=== PATIENT | male | born 1960 | race Caucasian/White ===

== ENCOUNTER 2016-07-15 11:43 | Observation (INO) ==
[2016-07-15 12:10] LABS: Basophils # 0.1 K/mcL (0.0-0.2); Basophils % 0.5 %; Eosinophils # 0.1 K/mcL (0.0-0.6); Eosinophils % 0.9 %; Hematocrit 44.3 % (37.5-50.1); Hemoglobin 15.5 g/dL (12.9-16.9); Immature Granulocytes % 0.4 % (0-4); Lymphocytes # 0.7 K/mcL (0.6-4.6); Lymphocytes % 7.4 %; Mean Corpuscular Hemoglobin 32.2 pg (28.0-33.3); Mean Corpuscular Volume 92.1 fL (83.0-100.0); Mean Platelet Volume 8.9 fL (9.4-12.4); Monocytes # 0.8 K/mcL (0.0-1.3); Monocytes % 8.3 %; Neutrophils # 8.2 K/mcL (1.6-8.9); Platelet Count 214 K/mcL (140-400); Red Blood Count 4.81 M/mcL (4.19-5.50); Red Cell Distribution Width 12.7 % (11.5-14.5); Segmented Neutrophils % 82.5 %
[2016-07-15 12:16] LABS: Prothrombin Time 10.5 Seconds (9.4-12.1)
[2016-07-15 12:18] LABS: Activated Partial Thrombo Time 26.1 Seconds (26.0-36.0)
[2016-07-15 12:22] LABS: BUN/Creatinine Ratio 16 (6-26); Blood Urea Nitrogen 15 mg/dL (8-26); Calcium 10.2 mg/dL (8.6-10.8); Carbon Dioxide 24 mEq/L (19-29); Chloride 101 mEq/L (98-109); Glucose 122 mg/dL (70-99); Osmolality,Calculated 278 (280-300); Potassium 4.6 mEq/L (3.5-4.5); Sodium 133 mEq/L (136-145); eGFR For African Americans > 60 (> 60); eGFR For Non-African Americans > 60 (> 60)
[2016-07-15] MEDS ORDERED: Aspirin 81 MG TAB.CHEW PO STA (12:38)
[2016-07-15] MEDS ORDERED: Nitroglycerin 0.4 MG TAB.SUBL SL PRN ×2 (12:38→17:25)
--- NOTE | 2016-07-15 12:39 | Emergency Department Note ---
Disposition Clinical Impression: Elevated troponin Chest pain Qualifiers: Chest pain type: unspecified Qualified Code(s): R07.9 - Chest pain, unspecified Disposition: Admitted As Inpatient Condition: Good Referrals: Yaquelin Valenzuela DO [Primary Care Provider] - Forms: ED Satisfaction Letter Chest Pain HPI - General Chief Complaint: ED Chest Pain Stated Complaint: chest pain Time Seen by Provider: 07/15/16 11:58 Source: patient Limitations: no limitations Vital Signs Reviewed: Yes Nursing Notes Reviewed: Yes - History of Present Illness HPI Narrative: 55-year-old male history of CAD, status post CABG in 2014 who presents to the ER with a chief complaint of chest pain. Patient reports that he woke up this morning with centralized chest pain with radiation into his left upper shoulder. Patient reports it feels like there is a heaviness on his chest. It is been rather constant since it started this morning. Patient reports shortness of breath as well. He denies any diaphoresis, nausea, vomiting. No history of PE. Patient is currently on Plavix. States he follows with cardiology here. No other complaints. Pt complaint: chest pain Onset (ago): hour(s) Time: 08:00 Duration: constant Onset: during rest Pain Location: substernal Severity: moderate Severity scale (1-10): 6 Quality: heaviness Pain Radiation: LUE Improves with: nothing Worsens with: nothing Associated symptoms: Reports: dyspnea. Denies: nausea, vomiting Treatments prior to arrival chest pain: none - Related Data On Oral Contraceptives: No Home Medications Medication Instructions Recorded Confirmed Clopidogrel [Plavix] 75 mg PO DAILY 03/31/15 07/15/16 Albuterol Sulfate [Albuterol 2 puff IH QID PRN 12/10/15 07/15/16 Inhaler] Aspirin Enteric Coated [Aspirin EC] 81 mg PO DAILY 12/10/15 07/15/16 Lisinopril [Zestril] 20 mg PO DAILY 12/10/15 07/15/16 Nitroglycerin [Nitrostat] 0.4 mg SL Q5M PRN 12/10/15 07/15/16 Carvedilol 12.5 mg PO BID 01/09/16 07/15/16 Ibuprofen [Motrin] 800 mg PO Q8HR PRN 01/09/16 07/15/16 Multivit-Min/FA/Lycopen/Lutein 1 tab PO DAILY 01/09/16 07/15/16 [Centrum Silver Tablet] Fluticasone Propionate Nasal 1 spray NS DAILY 07/15/16 07/15/16 [Flonase] Previous Rx's Medication Instructions Recorded OxyCODONE Immed Rel [Roxicodone 5 1 - 2 tab PO Q4HR PRN #40 tablet 12/11/15 MG] Gabapentin [Neurontin] 600 mg PO TID #180 capsule 01/11/16 Rosuvastatin [Crestor] 20 mg PO HS #30 tablet 01/11/16 Allergies Allergy/AdvReac Type Severity Reaction Status Date / Time acetaminophen [From Vicodin] AdvReac Vomiting Verified 12/10/15 07:33 hydrocodone [From Vicodin] AdvReac Vomiting Verified 12/10/15 07:33 All systems ED: reviewed and negative except as stated. Constitutional: Denies: fever Cardiovascular: Reports: chest pain. Denies: palpitations Respiratory: Reports: dyspnea. Denies: cough, wheezes Gastrointestinal: Denies: abdominal pain, nausea, vomiting Musculoskeletal: Denies: back pain, neck pain Chest Pain PMH - Past Medical History Medical history: Reports: hyperlipidemia, hypertension, myocardial infarction, other Surgical history: Reports: coronary bypass (CABG), other (Recent left iliac stent status post thrombectomy 2 weeks ago) Psychiatric history: Reports: no psych history - Social History Smoking Status: Current every day smoker Alcohol use: Reports: none Drug use: Reports: none Physical Exam - General Limitations: no limitations General appearance: alert, in no apparent distress - Head Head exam: atraumatic, normocephalic, normal inspection - Eye Eye exam: Present: normal appearance, EOMI - ENT ENT exam: normal exam - Neck Neck exam: Present: normal inspection - Chest Chest inspection: Present: normal inspection, symmetric chest wall rise - Respiratory Respiratory exam: Present: normal lung sounds bilaterally - Cardiovascular Cardiovascular exam: Present: regular rate, normal rhythm, normal heart sounds - Abdominal Exam Abdominal exam: Present: soft, Non-Tender. Absent: tenderness - Extremities Exam Extremities exam: Present: normal inspection, full ROM - Expanded Upper Extremity Exam Shoulder exam: Present: normal inspection, full ROM Arm exam: Present: normal inspection, full ROM Elbow exam: Present: normal inspection, full ROM Forearm/Wrist exam: Present: normal inspection, full ROM Hand exam: Present: normal inspection, full ROM - Expanded Lower Extremity Exam Hip/Pelvis exam: Present: normal inspection, full ROM Upper leg exam: Present: normal inspection, full ROM Knee exam: Present: normal inspection, full ROM Lower leg exam: Present: normal inspection, full ROM Ankle exam: Present: normal inspection, full ROM Foot/toe exam: Present: normal inspection, full ROM - Neurological Exam Neurological exam: Present: alert - Psychiatric Psychiatric exam: Present: normal affect, normal mood - Skin Skin exam: Present: warm, dry, intact, normal color Course Course Narrative: EKG demonstrates normal sinus rhythm with a rate of 86 bpm. Normal axis. NH interval 152 QRS duration [address] QTC [address] elevations in the precordial leads V1 through V3 that are unchanged from the patient's previous EKG. There are T-wave inversions in the lateral leads V4 and V5 with flattening in V6 that are also unchanged from previous EKG. No other ST elevations or depressions. No significant changes from previous EKG dated 01/09/16. Vital Signs Temperature 98.4 F 07/15/16 11:48 Pulse Rate 88 07/15/16 11:48 Respiratory Rate 16 07/15/16 11:48 Blood Pressure 203/125 07/15/16 11:48 O2 Sat by Pulse Oximetry 94 L 07/15/16 11:48 Temperature 98.4 F 07/15/16 11:48 Pulse Rate 73 07/15/16 15:00 Respiratory Rate 16 07/15/16 15:00 Blood Pressure 123/78 07/15/16 15:00 O2 Sat by Pulse Oximetry 96 07/15/16 15:00 Oxygen Delivery Oxygen Delivery Nasal Cannula Chest Pain - [facility] Narrative Medical decision making narrative: 55-year-old male presents to the ER due to chest pain or shortness of breath. Known history of CAD and CABG. EKG is unchanged from previous. Chest x-ray is unremarkable. Troponin did come back at 0.04. Patient given aspirin and one sublingual nitroglycerin which alleviated his pain. Placed on nitro paste. Admitted to the hospitalist service. - Lab Data Lab results reviewed: Yes I reviewed the patient's lab results. Result diagrams: 07/15/16 12:00 07/15/16 12:00 Lab Results 07/15/16 07/15/16 07/15/16 Range/Units 12:00 12:00 12:00 WBC 10.0 (4.3-11.1) K/mcL RBC 4.81 (4.19-5.50) M/mcL Hgb 15.5 (12.9-16.9) g/dL Hct 44.3 (37.5-50.1) % MCV 92.1 (83.0-100.0) fL MCH 32.2 (28.0-33.3) pg MCHC 35.0 (31.6-35.5) g/dL RDW 12.7 (11.5-14.5) % Plt Count 214 (140-400) K/mcL MPV 8.9 L (9.4-12.4) fL Immature Gran % 0.4 (0-4) % Seg Neutrophils % 82.5 % Lymphocytes % 7.4 % Monocytes % 8.3 % Eosinophils % 0.9 % Basophils % 0.5 % Neutrophils # 8.2 (1.6-8.9) K/mcL Lymphocytes # 0.7 (0.6-4.6) K/mcL Monocytes # 0.8 (0.0-1.3) K/mcL Eosinophils # 0.1 (0.0-0.6) K/mcL Basophils # 0.1 (0.0-0.2) K/mcL PT 10.5 (9.4-12.1) Seconds INR 1.0 APTT 26.1 (26.0-36.0) Seconds Sodium (136-145) mEq/L Potassium (3.5-4.5) mEq/L Chloride (98-109) mEq/L Carbon Dioxide (19-29) mEq/L BUN (8-26) mg/dL Creatinine (0.72-1.25) mg/dL Est GFR ( Amer) (> 60) Est GFR (Non-Af Amer) (> 60) BUN/Creatinine Ratio (6-26) Glucose (70-99) mg/dL Calculated Osmolality (280-300) Calcium (8.6-10.8) mg/dL Troponin I (0-0.03) ng/mL B-Natriuretic Peptide 449 H (0-100) pg/mL TSH (0.350-4.840) mcIU/mL 07/15/16 07/15/16 Range/Units 12:00 12:00 WBC (4.3-11.1) K/mcL RBC (4.19-5.50) M/mcL Hgb (12.9-16.9) g/dL Hct (37.5-50.1) % MCV (83.0-100.0) fL MCH (28.0-33.3) pg MCHC (31.6-35.5) g/dL RDW (11.5-14.5) % Plt Count (140-400) K/mcL MPV (9.4-12.4) fL Immature Gran % (0-4) % Seg Neutrophils % % Lymphocytes % % Monocytes % % Eosinophils % % Basophils % % Neutrophils # (1.6-8.9) K/mcL Lymphocytes # (0.6-4.6) K/mcL Monocytes # (0.0-1.3) K/mcL Eosinophils # (0.0-0.6) K/mcL Basophils # (0.0-0.2) K/mcL PT (9.4-12.1) Seconds INR APTT (26.0-36.0) Seconds Sodium 133 L (136-145) mEq/L Potassium 4.6 H (3.5-4.5) mEq/L Chloride 101 (98-109) mEq/L Carbon Dioxide 24 (19-29) mEq/L BUN 15 (8-26) mg/dL Creatinine 0.95 (0.72-1.25) mg/dL Est GFR ( Amer) > 60 (> 60) Est GFR (Non-Af Amer) > 60 (> 60) BUN/Creatinine Ratio 16 (6-26) Glucose 122 H (70-99) mg/dL Calculated Osmolality 278 L (280-300) Calcium 10.2 (8.6-10.8) mg/dL Troponin I 0.04 H* (0-0.03) ng/mL B-Natriuretic Peptide (0-100) pg/mL TSH 1.572 (0.350-4.840) mcIU/mL - Radiology Data Radiology results reviewed: Yes I reviewed the patient's radiology results. Chest X-Ray 07/15/16 11:58 IMPRESSION: No acute cardiopulmonary process. D/ / 07/15/2016 12:47:29 Ramon Townsend MD / [facility] Interpreting Provider: Ramon Townsend MD - EKG Data EKG attestation: Yes I reviewed and interpreted this EKG. EKG results narrative: EKG demonstrates sinus rhythm with a rate of 86 bpm. Normal axis. NH interval 152 QRS duration 105 QTC [address] elevations in the precordial leads V1 through V3 unchanged from previous. T wave inversions in V4, V5 and lead 1 and unchanged from previous. T wave flattening in lead V6. No other ST elevations or depressions. No acute ischemic findings. No significant changes from previous EKG dated 01/09/16. Heart Score - Score History: Moderately Suspicious EKG: Non Specific repolarisation Disturbance Age: 45-65 Risk Factors: Equal/Greater than 3 risk factor or history of atherosclerotic disease Troponin: 1-3x normal limit HEART Score Total: 6 S.B.A.R. - S.B.A.R. Situation: Demographics, MOA Background: Presenting Complaint, Relevant PMH, Meds, & Allergies Assessment: Vital Signs, Course and respsone to treatment, Exam Concerns, Patient/Family Expectation, Outstanding Labs Recommendation: Barrier(s) to disposition, Recommendation based on pending studies, treatments, or consults S.B.A.R. Report Given to: Saira Van SRoroBRoroAJessica Repor Time: 14:12 Attestation Statement - Attestation Attestation: I personally interviewed and examined this patient and my medical decision- making was reviewed with the ED Resident Physician, Dr. Mabry. I agree with the documented findings, disposition and treatment plan as described in the documentation. Patient's 55-year-old white male with history of known coronary artery disease status post left heart catheter followed by CABG in the past. Patient's here with left-sided chest pain. Pain was relieved with aspirin and 1 nitroglycerin here in the ED. Patient has remained pain-free with stable vital since that time. EKG shows lateral ischemia, but unchanged from prior EKG's. Initial trop is positive. Will admit pt for NSTEMI, is hemodynamically stable and pain free at time of admission.
[2016-07-15] MEDS ORDERED: Nitroglycerin 1 INCH/GM PACKET TP ONE (13:20)
[2016-07-15 14:05] LABS: Thyroid Stimulating Hormone 1.572 mcIU/mL (0.350-4.840)
[2016-07-15] MEDS ORDERED: Naloxone 0.4 MG/ML INJ IVP PRN (17:22)
[2016-07-15] MEDS ORDERED: Ibuprofen 800 MG TABLET PO PRN (17:25)
[2016-07-15] MEDS ORDERED: *HR* OxyCODONE Immed Rel 5 MG TABLET PO PRN (17:25)
--- NOTE | 2016-07-15 18:35 | Internal Med History&Physical ---
<Yulisa Barroso - Last Filed: 07/15/16 20:07> Date of Encounter: 07/15/16 Time of Encounter: 18:29 Assessment and Plan (1) Chest pain Current visit: Yes Status: Acute 1 patient was awakened with sternal chest pressure as well as shortness of breath. He does have a past cardiac history with a 2014 he had a cardiac stress 01/07 which was negative for ischemia echo 01/07 demonstrated EF of 3035% with severe left ventricular systolic dysfunction and moderate diastolic dysfunction. Chest pressure was relieved with nitroglycerin. Troponins were 0.04 we will continue to cycle cardiac troponins 2. cardiac monitoring-EKG 3 continue with aspirin and stati DELLA 4 nitroglycerin as needed for chest pain 5 surgeon titrated to maintain SPO2 92% 6 patient nothing by mouth after midnight 7 consult cardiology 8 encourage patient to stop smoking [address] on cardiac gtt Qualifiers: Chest pain type: unspecified Qualified Code(s): R07.9 - Chest pain, unspecified (2) Unspecified essential hypertension Current visit: No Status: Chronic 1 patient has history of hypertension upon presentation patient's blood pressure was 20 3/125. Presently 120/78. We will continue with lisinopril goal is to maintain systolic less than 140 (3) CAD (coronary artery disease) Current visit: Yes Status: Chronic 1 patient has history of coronary disease with stents and CABG. We will continue with aspirin and statin DELLA 2 we will obtain lipid profile in a.m. 3 cardiac diet Qualifiers: Coronary Disease-Associated Artery/Lesion type: bypass graft, autologous vein Associated angina: with unstable angina Qualified Code(s): I25.710 - Atherosclerosis of autologous vein coronary artery bypass graft(s) with unstable angina pectoris (4) Tobacco abuse Current visit: Yes Status: Chronic 1 patient smoking one pack to pack and a half daily encouraged patient to stop smoking nicotine patch Internal Medicine - H&P: HPI Chief complaint: cp Admitted From: Emergency Dept Plans for Post Hospital Care: Home History of present illness: Mr. Santoro is a 55 year old male past history of CAD status post CABG 2015 stent placements hyperlipidemia hypertension iliac stent 2 weeks ago thrombectomy tobacco abuse. According to the patient he woke with 3 AM this morning with midsternal chest pain described as heaviness radiating to his left upper shoulder. Patient states the pressure may difficult for him to breathe as well as experiencing some nausea and lightheadedness. The heaviness continued all morning making him short of breath there were no relieving factors aggravated with exertion. He came to the ER for further workup and evaluation. Upon presentation patient is experiencing 6 out 10 chest pressure he was given aspirin and one single nitroglycerin which did relieve his pain. He was placed on Nitropaste. Chest x-ray was unremarkable troponin was 0.04 EKG was sinus rhythm with normal axis and is admitted for further workup and evaluation. Presently patient denies any chest pain or shortness of breath he does appear tired he states he is very fatigued. Lung sounds are clear heart sounds with S1 -S2 regular rate no rubs murmurs or gallops noted the present time he is hemodynamically stable. He is case with who agrees with plan Past Med Surg Social Fam HX - Past Medical History Medical history: hyperlipidemia, hypertension, myocardial infarction, other Psychiatric history: no psych history - Past Surgical History Surgical History: angioplasty/stent, coronary bypass (CABG), LE stent(s), other - Social History Smoking Status: Current every day smoker Packs per day: 1.5 Smokeless Tobacco Status: No Alcohol use: none Drug use: none - Family History Brother Living Status: Still Living Hx Family Cardiac Disorders: Yes Hx Family Respiratory Disorders: Yes Internal Medicine - H&P: Meds Clopidogrel [Plavix] 75 mg PO DAILY 03/31/15 [History] Albuterol Sulfate [Albuterol Inhaler] 2 puff IH QID PRN 12/10/15 [History] Aspirin Enteric Coated [Aspirin EC] 81 mg PO DAILY 12/10/15 [History] Lisinopril [Zestril] 20 mg PO DAILY 12/10/15 [History] Nitroglycerin [Nitrostat] 0.4 mg SL Q5M PRN 12/10/15 [History] OxyCODONE Immed Rel [Roxicodone 5 MG] 1 - 2 tab PO Q4HR PRN #40 tablet 12/11/15 [Rx] Carvedilol 12.5 mg PO BID 01/09/16 [History] Ibuprofen [Motrin] 800 mg PO Q8HR PRN 01/09/16 [History] Multivit-Min/FA/Lycopen/Lutein [Centrum Silver Tablet] 1 tab PO DAILY 01/09/16 [ History] Gabapentin [Neurontin] 600 mg PO TID #180 capsule 01/11/16 [Rx] Rosuvastatin [Crestor] 20 mg PO HS #30 tablet 01/11/16 [Rx] Fluticasone Propionate Nasal [Flonase] 1 spray NS DAILY 07/15/16 [History] Allergies acetaminophen [From Vicodin] Adverse Reaction (Verified 12/10/15 07:33) Vomiting PATIENT STATES CAN TAKE TYLENOL NOT VICODIN hydrocodone [From Vicodin] Adverse Reaction (Verified 12/10/15 07:33) Vomiting All Systems PM: A 10-system review of systems was performed and is negative for pertinent findings except as documented above in the HPI. - Constitutional Constitutional: no chills, no fever(s), no night sweats - Cardiovascular Cardiovascular ROS IM: chest pain, dyspnea on exertion, lightheadedness - Respiratory Respiratory: dyspnea on exertion - Gastrointestinal Gastrointestinal: no abdominal pain, no diarrhea, no hematemesis, no hematochezia, no melena, no nausea, no vomiting - Musculoskeletal Musculoskeletal ROS IM: no numbness, no tingling - Integumentary Integumentary IM: no rash, no unusual bruising - Neurological Neurological ROS: no confusion, no convulsions, no focal weakness, no numbness, no tingling, no tremor(s) - Constitutional Vitals: Temp Pulse Resp BP Pulse Ox 98.2 F 86 20 162/79 97 07/15/16 17:26 07/15/16 17:26 07/15/16 17:26 07/15/16 17:26 07/15/16 17:26 General appearance: Present: A&O X 3, answers questions appropriately - Head Head exam: Present: atraumatic, normocephalic - Eye Eye exam: Present: PERRL, conjuntiva pink, sclera anicteric Pupils: Present: PERRL - Neck Neck exam general surgery: Present: supple, trachea midline. Absent: lymphadenopathy - Respiratory Respiratory exam: Present: CTAB. Absent: accessory muscle use, rales, rhonchi, wheezes - Cardiovascular Cardiovascular exam: Present: RRR, +S1, +S2. Absent: diastolic murmur, gallop, rubs, systolic murmur - GI/Abdominal GI/Abdominal exam: Present: normal bowel sounds, soft, no peritoneal signs. Absent: distended, tenderness - Extremities Exam Extremities exam: Present: warm, radial pulses palpable and symetrical. Absent : calf tenderness, cyanotic, pedal edema - Neurological Exam Neurological exam: Present: CN II-XII intact, oriented X3, no focal deficits. Absent: pronater drift, facial droop, speech deficit - Skin Skin exam: Present: dry, intact Internal Med - H&P Results - Labs CBC & Chem 7: 07/15/16 12:00 07/15/16 12:00 - EKG Data EKG shows normal: sinus rhythm, axis Rate: normal - EKG Data Prior EKG available for review: yes When compared to previous EKG: there is no significant change - Diagnostic Studies Chest x-ray Additional comments: Chest X-Ray 07/15/16 11:58 IMPRESSION: No acute cardiopulmonary process. D/ / 07/15/2016 12:47:29 Ramon Townsend MD / [facility] Interpreting Provider: Ramon Townsend MD <Kevyn Marino - Last Filed: 07/16/16 04:55> Internal Medicine - H&P: HPI History of present illness: Mr. Santoro is a 55 year old male All Systems PM: A 10-system review of systems was performed and is negative for pertinent findings except as documented above in the HPI. - Constitutional Vitals: Temp Pulse Resp BP Pulse Ox 97.5 F L 69 15 99/64 95 07/16/16 03:33 07/16/16 03:33 07/16/16 03:33 07/16/16 03:33 07/16/16 03:33 Internal Med - H&P Results - Labs CBC & Chem 7: 07/16/16 00:35 07/16/16 00:35 Labs: Short CBC 07/15/16 07/16/16 Range/Units 21:02 00:35 WBC 4.9 D 4.8 (4.3-11.1) K/mcL Hgb 14.5 14.5 (12.9-16.9) g/dL Hct 41.5 41.1 (37.5-50.1) % Plt Count 227 196 (140-400) K/mcL Neutrophils # 2.9 (1.6-8.9) K/mcL BMP 07/16/16 00:35 Sodium 135 L Potassium 4.3 Chloride 103 Carbon Dioxide 23 BUN 15 Creatinine 0.93 Glucose 95 Calcium 9.6 Cardiac Enzymes 07/15/16 07/16/16 Range/Units 18:27 00:35 Troponin I 0.03 0.01 (0-0.03) ng/mL - Attending Attestation I examined this patient and my medical decision-making was reviewed with the CHIEF DATA OFFICER/PA/Advanced Practice Nurse/Resident Physician. I agree with the documented findings, disposition and treatment plan as described except to the extent set forth below. I agree with our nurse practitioner, continue heparin drip. Cardiology evaluation. Discussed with patient.
[2016-07-15] MEDS ORDERED: *HR* Heparin 5,000 UNIT/ML VIAL IVP ONE (20:01)
[2016-07-15] MEDS ORDERED: *HR* Heparin 5,000 UNIT/ML VIAL IVP PRN ×2 (20:01)
[2016-07-15] MEDS ORDERED: Heparin 25,000 UNIT/500 ML D5W 25,000 UNIT/500 ML MLS IVC SCH (20:15)
[2016-07-15 21:09] LABS: Hematocrit 41.5 % (37.5-50.1); Hemoglobin 14.5 g/dL (12.9-16.9); Immature Platelets 2.5 % (1.1-6.1); Mean Corpuscular HGB Conc 34.9 g/dL (31.6-35.5); Mean Corpuscular Hemoglobin 31.9 pg (28.0-33.3); Mean Corpuscular Volume 91.4 fL (83.0-100.0); Mean Platelet Volume 8.7 fL (9.4-12.4); Red Blood Count 4.54 M/mcL (4.19-5.50); Red Cell Distribution Width 12.8 % (11.5-14.5)
[2016-07-15 21:15] LABS: Prothrombin Time 10.9 Seconds (9.4-12.1)
[2016-07-15 21:18] LABS: Activated Partial Thrombo Time 28.2 Seconds (26.0-36.0)
[2016-07-15] MEDS: Gabapentin 300 MG CAPSULE PO SCH (21:32)
[2016-07-16 01:08] LABS: Basophils % 0.8 %; Eosinophils # 0.4 K/mcL (0.0-0.6); Eosinophils % 7.9 %; Hematocrit 41.1 % (37.5-50.1); Hemoglobin 14.5 g/dL (12.9-16.9); Immature Granulocytes % 0.2 % (0-4); Lymphocytes # 0.8 K/mcL (0.6-4.6); Lymphocytes % 16.3 %; Mean Corpuscular HGB Conc 35.3 g/dL (31.6-35.5); Mean Corpuscular Hemoglobin 32.6 pg (28.0-33.3); Mean Corpuscular Volume 92.4 fL (83.0-100.0); Mean Platelet Volume 9.3 fL (9.4-12.4); Monocytes # 0.7 K/mcL (0.0-1.3); Monocytes % 14.4 %; Neutrophils # 2.9 K/mcL (1.6-8.9); Platelet Count 196 K/mcL (140-400); Red Blood Count 4.45 M/mcL (4.19-5.50); Red Cell Distribution Width 12.9 % (11.5-14.5); Segmented Neutrophils % 60.4 %
[2016-07-16 01:24] LABS: BUN/Creatinine Ratio 16 (6-26); Blood Urea Nitrogen 15 mg/dL (8-26); Calcium 9.6 mg/dL (8.6-10.8); Carbon Dioxide 23 mEq/L (19-29); Chloride 103 mEq/L (98-109); Chol/HDL Ratio 3.2 (0-4.9); Cholesterol 199 mg/dL (< 200); Glucose 95 mg/dL (70-99); HDL Cholesterol 63 mg/dL (40-59); LDL Cholesterol,Calculated 116 mg/dL (0-99); Osmolality,Calculated 281 (280-300); Potassium 4.3 mEq/L (3.5-4.5); Sodium 135 mEq/L (136-145); Triglycerides 102 mg/dL (< 150); eGFR For African Americans > 60 (> 60); eGFR For Non-African Americans > 60 (> 60)
--- NOTE | 2016-07-16 08:48 | Cardiology Consult Note ---
Date of Encounter: 07/16/16 Time of Encounter: 08:30 Assessment and Plan (1) Accelerated hypertension Current Visit: No Status: Resolved Increase lisinopril. Blood pressure improved with nitroglycerin paste. Reports multiple blood pressure in the 200 systolic range over the past week. Low- sodium diet discussed. (2) Chest pain Current Visit: Yes Status: Acute Chest pain now resolved. Chest pain in the setting of hypertensive emergency. Blood pressure 203/125. Mild troponin 0.04, 0.03, and 0.01 in the setting of demand ischemia from elevated blood pressure. Recommend medical management. Increase lisinopril. Continue aspirin, statin, beta alfonzo. Qualifiers: Chest pain type: unspecified Qualified Code(s): R07.9 - Chest pain, unspecified (3) Cardiomyopathy Current Visit: No Status: Chronic History of an ischemic cardiomyopathy. Last echocardiogram in December 2015 showed EF 30-35%. Recommend outpatient follow-up and repeat TTE to assess LV function and to assess need for ICD. Currently euvolemic. Continue carvedilol and lisinopril. Qualifiers: Cardiomyopathy type: ischemic Qualified Code(s): I25.5 - Ischemic cardiomyopathy (4) CAD (coronary artery disease) Current Visit: Yes Status: Chronic History of previous PCI and CABG 3 in 2013. Continue aspirin, statin, and beta alfonzo. Patient is noted to have poor cardiology follow-up. Multiple no-shows in the cardiology office. History of medical noncompliance. Patient encouraged to follow regularly with cardiology. Qualifiers: Coronary Disease-Associated Artery/Lesion type: bypass graft, autologous vein Associated angina: with unstable angina Qualified Code(s): I25.710 - Atherosclerosis of autologous vein coronary artery bypass graft(s) with unstable angina pectoris Discussion w patient/family: The assessment and plan as outlined above was discussed with the patient and/or family members who expressed understanding and agreement. All questions were answered. Thank you for involving us in the care of your patient. Please call with any questions. History of Present Illness Consult date: 07/16/16 Consult reason: Chest pain Chief complaint: Chest pain, elevated b/p History of present illness: Mr. Santoro is a 55 year old male with a relevant past medical history of CAD with CABG 3 at [facility] in January 2014, cardiomyopathy with an EF of 35%, hypertension, hyperlipidemia, paroxysmal atrial fibrillation, PAD, history of medical noncompliance, and nicotine abuse. He presented to the hospital with a complain of chest pain at rest and near syncope. His symptoms started 2 hours prior to arrival. He describes a sudden onset of substernal chest heaviness that was nonradiating. He tried to walk to his neighbor's house when he became dizzy. In the emergency squad his blood pressure was found to be 225/100 per patient. His blood pressure on arrival to the ER was 203/125. He received nitroglycerin paste and his blood pressure did improve. His pain is not like his previous AR. He had a similar occurrence at home one week ago. When he checked his blood pressure was in the 200 systolic range. Chest discomfort was relieved with 2 nitroglycerin. He was hospitalized last December for chest pain and underwent a stress test that was negative. He reports he has been taking all of his medications. Past Med Surg Social Fam HX - Past Medical History Medical history: hyperlipidemia, hypertension, myocardial infarction, other Psychiatric history: no psych history - Past Surgical History Surgical History: angioplasty/stent, coronary bypass (CABG), LE stent(s), other - Social History Smoking Status: Current every day smoker Packs per day: 1.5 Smokeless Tobacco Status: No Alcohol use: none Drug use: none - Family History Brother Living Status: Still Living Hx Family Cardiac Disorders: Yes Hx Family Respiratory Disorders: Yes Medications and Allergies Clopidogrel [Plavix] 75 mg PO DAILY 03/31/15 [History] Albuterol Sulfate [Albuterol Inhaler] 2 puff IH QID PRN 12/10/15 [History] Aspirin Enteric Coated [Aspirin EC] 81 mg PO DAILY 12/10/15 [History] Lisinopril [Zestril] 20 mg PO DAILY 12/10/15 [History] Nitroglycerin [Nitrostat] 0.4 mg SL Q5M PRN 12/10/15 [History] OxyCODONE Immed Rel [Roxicodone 5 MG] 1 - 2 tab PO Q4HR PRN #40 tablet 12/11/15 [Rx] Carvedilol 12.5 mg PO BID 01/09/16 [History] Ibuprofen [Motrin] 800 mg PO Q8HR PRN 01/09/16 [History] Multivit-Min/FA/Lycopen/Lutein [Centrum Silver Tablet] 1 tab PO DAILY 01/09/16 [ History] Gabapentin [Neurontin] 600 mg PO TID #180 capsule 01/11/16 [Rx] Rosuvastatin [Crestor] 20 mg PO HS #30 tablet 01/11/16 [Rx] Fluticasone Propionate Nasal [Flonase] 1 spray NS DAILY 07/15/16 [History] Allergies acetaminophen [From Vicodin] Adverse Reaction (Verified 12/10/15 07:33) Vomiting PATIENT STATES CAN TAKE TYLENOL NOT VICODIN hydrocodone [From Vicodin] Adverse Reaction (Verified 12/10/15 07:33) Vomiting All Systems Review: A 10-system review of systems was performed and is negative for pertinent findings except as documented above in the HPI. Physical Examination Vital Signs, Last 4 Hours Temp Pulse Resp BP Pulse Ox 07/16/16 07:27 98.4 F 78 16 138/82 96 General: Conversant, No Apparent Distress HEENT: Atraumatic, Normocephaly, Mucus Membranes Moist Neck: No JVD, Normal carotid pulses Cardiac: Reg Rate and Rhythm, Normal S1 and S2, No Murmur Lungs: Normal Breath Sounds, No Wheeze, Rales, Rhonchi Neuro: Alert and responsive, No focal deficits noted Abdomen: Soft, Non-Tender Skin: No rashes noted on visualized skin Musculoskeletal: No Chest Wall Tenderness Extremities: No Clubbing, No Cyanosis, No Edema, Normal Pulses Results 07/16/16 00:35 07/16/16 00:35 Lab Results 07/15/16 07/15/16 07/15/16 18:27 21:02 21:02 WBC 4.9 D Hgb 14.5 Hct 41.5 Plt Count 227 INR 1.0 APTT 28.2 Sodium Potassium Chloride Carbon Dioxide BUN Creatinine Glucose Calcium Troponin I 0.03 07/16/16 07/16/16 07/16/16 00:35 00:35 00:35 WBC 4.8 Hgb 14.5 Hct 41.1 Plt Count 196 INR APTT Sodium 135 L Potassium 4.3 Chloride 103 Carbon Dioxide 23 BUN 15 Creatinine 0.93 Glucose 95 Calcium 9.6 Troponin I 0.01 07/16/16 03:10 WBC Hgb Hct Plt Count INR APTT 40.7 H Sodium Potassium Chloride Carbon Dioxide BUN Creatinine Glucose Calcium Troponin I - Imaging and Cardiology Stress Test: report reviewed Echo: report reviewed - EKG Interpretation EKG results cardiology: personally reviewed (Normal sinus rhythm, heart rate [address] changes. EKG similar to previous.) Consult Discharge Plan - Plan Referrals: Yaquelin Valenzuela DO [Primary Care Provider] -
[2016-07-16] MEDS ORDERED: Lisinopril 20 MG TABLET PO SCH ×3 (09:00→11:05)
[2016-07-16] MEDS ORDERED: Aspirin Enteric Coated 81 MG Tablet PO SCH (09:00)
[2016-07-16] MEDS ORDERED: Fluticasone Propionate Nasal 50 MCG/SPRAY BOTTLE NS SCH (09:00)
[2016-07-16] MEDS ORDERED: Multivit/Ca/Min/Fe/FA 1 TAB TABLET PO SCH (09:00)
[2016-07-16 10:42] VITALS: BP 129/74
[2016-07-16 11:10] LABS: Amphetamine Screen,Urine Negative ng/mL (Cutoff=1000); Barbiturate Screen,Urine Negative ng/mL (Cutoff=200); Benzodiazepines Screen,Urine Positive ng/mL (Cutoff=200); Cannabinoid Screen,Urine Positive ng/mL (Cutoff = 50); Cocaine Screen,Urine Positive ng/mL (Cutoff= 300); Opiate Screen,Urine Negative ng/mL (Cutoff=300); Phencyclidine Screen,Urine Negative ng/mL (Cutoff=25)
[2016-07-16] MEDS: Gabapentin 300 MG CAPSULE PO SCH (11:49)
--- NOTE | 2016-07-16 13:10 | Discharge Summary ---
Date of Encounter: 07/16/16 Time of Encounter: 12:00 - Discharge Diagnosis (1) Chest pain Priority: Primary Status: Resolved Comments: Patient denied chest pain or shortness of breath on day of discharge. Seen and evaluated by cardiology who cleared him for outpatient follow-up. Initial borderline troponin was followed by 2 negative troponins. Cardiology recommended medical management and follow up within 1-2 weeks. Of note, patient has a history of poor cardiac follow-up. No specific barriers identified. Qualifiers: Chest pain type: unspecified Qualified Code(s): R07.9 - Chest pain, unspecified (2) Combined systolic and diastolic heart failure Priority: Secondary Status: Chronic Comments: Patient had an echocardiogram in December 2015 which revealed an ejection fraction of 30-35% with moderate diastolic dysfunction. He was euvolemic on examination throughout this admission; no acute exacerbation. Seen by cardiology and cleared for outpatient follow-up. (3) Tobacco abuse Priority: Secondary Status: Chronic Comments: Continues to smoke 1.5 packs per day, declines counseling (4) Unspecified essential hypertension Priority: Secondary Status: Chronic Comments: Controlled on his home regimen, follow-up outpatient (5) CAD (coronary artery disease) Priority: Secondary Status: Chronic Qualifiers: Coronary Disease-Associated Artery/Lesion type: bypass graft, autologous vein Associated angina: with unstable angina Qualified Code(s): I25.710 - Atherosclerosis of autologous vein coronary artery bypass graft(s) with unstable angina pectoris (6) Mixed hyperlipidemia Priority: Secondary Status: Chronic Comments: Lipid panel unremarkable, recommend continue statin and low cholesterol diet (7) Peripheral artery disease Priority: Secondary Status: Chronic (8) Elevated troponin Priority: Primary Status: Resolved - Discharge Medications Home Medications: Clopidogrel [Plavix] 75 mg PO DAILY 03/31/15 [History] Albuterol Sulfate [Albuterol Inhaler] 2 puff IH QID PRN 12/10/15 [History] Aspirin Enteric Coated [Aspirin EC] 81 mg PO DAILY 12/10/15 [History] Lisinopril [Zestril] 20 mg PO DAILY 12/10/15 [History] Nitroglycerin [Nitrostat] 0.4 mg SL Q5M PRN 12/10/15 [History] OxyCODONE Immed Rel [Roxicodone 5 MG] 1 - 2 tab PO Q4HR PRN #40 tablet 12/11/15 [Rx] Carvedilol 12.5 mg PO BID 01/09/16 [History] Ibuprofen [Motrin] 800 mg PO Q8HR PRN 01/09/16 [History] Multivit-Min/FA/Lycopen/Lutein [Centrum Silver Tablet] 1 tab PO DAILY 01/09/16 [ History] Gabapentin [Neurontin] 600 mg PO TID #180 capsule 01/11/16 [Rx] Rosuvastatin [Crestor] 20 mg PO HS #30 tablet 01/11/16 [Rx] Fluticasone Propionate Nasal [Flonase] 1 spray NS DAILY 07/15/16 [History] Allergies/Adverse Reactions: Allergies acetaminophen [From Vicodin] Adverse Reaction (Verified 12/10/15 07:33) Vomiting PATIENT STATES CAN TAKE TYLENOL NOT VICODIN hydrocodone [From Vicodin] Adverse Reaction (Verified 12/10/15 07:33) Vomiting Procedures/tests Complete & Pending: Procedures Performed prior 72 hours Category Date Time Status CTA chest [CT angio chest] [CT] Stat Cat Scan 07/16/16 08:09 Draft ECG 12 lead ECG [ECG] AM 0600 Y 07/16/16 06:00 Stop Req EKG [ECG 12 lead ECG] [ECG] Stat Y 07/16/16 08:52 Ordered Date of admission: 07/15/16 16:19 Primary care physician: Yaquelin Valenzuela DO Consults: 07/15/16 20:02 Consult to Cardiology [CONS] Routine Comment: Consulting Provider: Allegra Tineo Reason for Consult: CP extensive cardiac hx Time Notified: 20:03 Call Completed: No Discharging clinician: Ivy Grady Anticipated date of discharge: 07/16/16 - Patient Status Disposition: Home, Self-Care Condition: Good Functional capacity at discharge: independent ambulation Overall status at discharge: patient is back to baseline - Discharge Instructions Follow Up With: Yaquelin Valenzuela DO [Primary Care Provider] - [facility] [Provider Group] Additional Instructions: Follow-up with primary care provider in one to 2 weeks, follow up with cardiology in 1-2 weeks - Diet and Activity Activity: increase activity as tolerated Diet: low fat, low cholesterol, low salt diet Hospital course: Mr. Santoro is a 55 year old male with past medical history of CAD status post CABG and stent placement, hyperlipidemia, hypertension, iliac stent placed 2 weeks prior to presentation with thrombectomy, tobacco abuse of 1.5 packs per day. Patient presented to the emergency department after he was awoken the middle of the night with midsternally located chest pain described as heaviness radiating to his left upper shoulder. The patient stating this chest pressure may be difficult for him to breathe and he was also experiencing nausea and lightheadedness. Patient states the heaviness had continued all morning and was associated with shortness of breath and worsened with exertion prompting his presentation to the emergency department. One nitroglycerin tablet relieved his pain in the emergency department. He was then placed on Nitropaste and a heparin drip as his initial troponin was borderline elevated at 0.04. He was admitted to the hospitalist service for further evaluation and management. Chest x-ray negative. Chest CTA ruled out a PE. Following 2 troponins were negative. Patient denied shortness of breath or chest pain after admission. Cardiology was brought on board who recommended medical management and close outpatient follow-up. Patient's blood pressure was controlled with his regular home medications. He was euvolemic on examination. He was discharged home in stable condition with close outpatient follow-up highly recommended. Of note, patient is noted to have a history of poor cardiac follow-up. No specific barriers to his follow-up care were identified. ITS Impressions Chest X-Ray 07/15/16 11:58 IMPRESSION: No acute cardiopulmonary process. D/ /15/2016 12:47:29 Ramon Townsend MD / rodrick Interpreting Provider: Ramon Townsend MD Chest CTA 07/16/16 08:09 IMPRESSION: 1. No CT evidence of a pulmonary embolism. 2. Unremarkable appearance of the intrathoracic aorta, without evidence of aneurysm or dissection. 3. No acute intrapulmonary findings. 4. Interval resolution of previously identified left upper lobe pulmonary nodule, which was likely infectious or inflammatory in etiology on the prior exam. No new suspicious pulmonary nodule or mass is evident. D/ / 07/16/2016 11:30:37 Davin Aldridge MD / sherley Interpreting Provider: Davin Aldridge MD - Time Spent with Patient Total time spent providing and/or coordinating discharge services: - Constitutional Vitals: Temp Pulse Resp BP Pulse Ox 97.4 F L 64 16 129/74 96 07/16/16 10:39 07/16/16 10:39 07/16/16 11:49 07/16/16 11:49 07/16/16 11:49 General appearance: Present: A&O X 3, pleasant, no acute distress, answers questions appropriately - Head Head exam: Present: atraumatic, normocephalic - Eye Eye exam: Present: PERRL, conjuntiva pink, sclera anicteric Pupils: Present: PERRL - Neck Neck exam general surgery: Present: supple, trachea midline. Absent: lymphadenopathy - Respiratory Respiratory exam: Present: decreased breath sounds. Absent: accessory muscle use, rales, respiratory distress, rhonchi, wheezes - Cardiovascular Cardiovascular exam: Present: RRR, +S1, +S2. Absent: diastolic murmur, gallop, rubs, systolic murmur - GI/Abdominal GI/Abdominal exam: Present: normal bowel sounds, soft, no peritoneal signs. Absent: distended, tenderness - Extremities Exam Extremities exam: Present: warm, radial pulses palpable and symetrical. Absent : calf tenderness, cyanotic, pedal edema - Neurological Exam Neurological exam: Present: alert, CN II-XII intact, normal gait, oriented X3, no focal deficits, strengths equal and symetr throughout. Absent: pronater drift, facial droop, speech deficit - Skin Skin exam: Present: dry, intact, normal color, warm
--- NOTE | 2016-07-18 06:03 | Electrocardiograph Report ---
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
--- NOTE | 2016-07-18 06:09 | Electrocardiograph Report ---
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
== END 2016-07-16 15:00 | disposition home or self-care (01) ==
LOC: EMEROO 11:43 → 3ANU 11:43 → 3BNU 16:32
PROVIDERS: ADMIT Nurse Practitioner Family; ATTEND Nurse Practitioner Family

== ENCOUNTER 2017-02-16 10:08 | Inpatient (IN) ==
--- NOTE | 2017-02-16 08:43 | Anesthesia Evaluation PreOp ---
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 Other Medical History: Denies Any Significant HX Anesthesia History: No Prior Anesthetic Complications, Past Anesthesia (CABG, LE stents, FEM endarterectomy 2015) Alcohol Use: none Drug use: none Medications and Allergies Clopidogrel [Plavix] 75 mg PO DAILY 03/31/15 [History] Albuterol Sulfate [Albuterol Inhaler] 2 puff IH QID PRN 12/10/15 [History] Aspirin Enteric Coated [Aspirin EC] 81 mg PO DAILY 12/10/15 [History] Lisinopril [Zestril] 20 mg PO DAILY 12/10/15 [History] Nitroglycerin [Nitrostat] 0.4 mg SL Q5M PRN 12/10/15 [History] OxyCODONE Immed Rel [Roxicodone 5 MG] 1 - 2 tab PO Q4HR PRN #40 tablet 12/11/15 [Rx] Carvedilol 12.5 mg PO BID 01/09/16 [History] Ibuprofen [Motrin] 800 mg PO Q8HR PRN 01/09/16 [History] Multivit-Min/FA/Lycopen/Lutein [Centrum Silver Tablet] 1 tab PO DAILY 01/09/16 [ History] Gabapentin [Neurontin] 600 mg PO TID #180 capsule 01/11/16 [Rx] Rosuvastatin [Crestor] 20 mg PO HS #30 tablet 01/11/16 [Rx] Fluticasone Propionate Nasal [Flonase] 1 spray NS DAILY 07/15/16 [History] Aspirin 325 mg PO DAILY #7 tablet 02/03/17 [Rx] Clopidogrel [Plavix] 75 mg PO DAILY #7 tablet 02/03/17 [Rx] 3 Allergy/AdvReac Type Severity Reaction Status Date / Time acetaminophen [From Vicodin] AdvReac Vomiting Verified 12/10/15 07:33 hydrocodone [From Vicodin] AdvReac Vomiting Verified 12/10/15 07:33 - Meds/Allergy Pre-op Review Medications Reviewed: Yes Allergies Reviewed: Yes Anesthesia Results - Labs Laboratory Tests 02/03/17 02/03/17 02/03/17 12:54 12:54 12:54 Hgb 15.6 Plt Count 196 PT 10.3 INR 1.0 Sodium 135 L Potassium 4.5 BUN 11 Creatinine 1.07 - Imaging EKG: report reviewed (SINUS RHYTHM LEFT ANTERIOR FASCICULAR BLOCK POSSIBLE ANTEROSEPTAL MYOCARDIAL INFARCTION ST \T\ T WAVE ABNORMALITY, CONSIDER ANTEROLATERAL ISCHEMIA PROLONGED QT INTERVAL) Additional studies: stress test: Impression: Perfusion imaging was negative for ischemia. There is a medium sized area of infarct involving the apex and anterolateral wall. Exercise ECG was non-diagnostic for ischemia. Exercise capacity was good. Normal hemodynamic response. Patient had no chest pain with stress. Rare PVCs throughout rest, stress and recovery. Gated EF = 34%. The LV is dilated. Echo 07/07: mpressions: LVEF 30-35%. Mildly dilated left ventricle. Severe segmental left ventricular systolic dysfunction. Moderate left ventricular diastolic dysfunction. Atypical septal motion consistent with post-operative status. Normal right ventricular structure and function. Unable to estimate RVSP due to lack of TR jet. No significant valvular dysfunction. 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
[2017-02-16] MEDS ORDERED: Lidocaine -MPF 1% 2 ML VIAL ID ONE (10:43)
[2017-02-16] MEDS ORDERED: CeFAZolin Pre 2,000 MG/100 ML 2,000 MG/100 ML BAG IVPB ONE (10:43)
[2017-02-16] MEDS ORDERED: Vancomycin 1,000 MG in D5% in Water 250 ML IVPB ONE ×2 (10:43→23:30)
[2017-02-16] MEDS ORDERED: Plasma-Lyte A (PH 7.4) 1,000 ML IVC SCH (10:45)
[2017-02-16] MEDS ORDERED: Albuterol 2.5 MG/3 ML NEBULIZER IH ONE (10:45)
[2017-02-16] MEDS ORDERED: Ondansetron 4 MG/2 ML VIAL IVP PRN ×2 (10:51→17:14)
[2017-02-16] MEDS ORDERED: Ketamine *HR* 500 MG/10 ML MDV ONE (10:55)
[2017-02-16] MEDS ORDERED: *HR* FentaNYL (PF) 100 MCG/2 ML VIAL ONE (10:55)
[2017-02-16] MEDS ORDERED: *HR* Midazolam HCl 2 MG/2 ML VIAL ONE (10:56)
[2017-02-16] MEDS ORDERED: *HR* Propofol 200 MG/20 ML VIAL IVP ONE (10:56)
[2017-02-16] MEDS ORDERED: Lidocaine -MPF 2% 2 ML VIAL ONE (10:58)
[2017-02-16] MEDS ORDERED: *HR* Succinylcholine 200 MG/10 ML VIAL IVP ONE (11:01)
[2017-02-16] MEDS ORDERED: *HR* Rocuronium Bromide 50 MG/5 ML VIAL ONE ×2 (11:01→13:51)
[2017-02-16] MEDS ORDERED: Heparin 1,000 UNITS/500 mL NS 500 ML ONE (11:21)
[2017-02-16] MEDS ORDERED: Ondansetron 4 MG/2 ML VIAL ONE ×2 (11:23→13:30)
[2017-02-16] MEDS ORDERED: Neostigmine Methylsulfate 3 MG/3 ML SYRINGE ONE ×2 (11:29→15:23)
[2017-02-16] MEDS ORDERED: *HR* HYDROmorphone 2 MG/ML SYRINGE ONE ×2 (12:04→15:25)
[2017-02-16] MEDS ORDERED: Heparin 1,000 UNITS/500 mL NS 1,000 ML ONE (12:27)
--- NOTE | 2017-02-16 12:39 | History & Physical Report ---
Date of Encounter: 02/16/17 Time of Encounter: 12:25 24 Hour HP Update - Instructions Instructions: If the History and Physical is less than 30 days old and was completed prior to A.M. admission and or procedure and has NOT been updated on calendar day of procedure please complete this update prior to performing procedure. - Update Patient reports changes in Medical Condition: No Changes in examination, assessment, or condition: No Changes in Medication: No Preop tests/diagnostics Reviewed: Yes Surgery Remains Indicated: Yes Consent for Planned Operative Procedure(s) Verified: Yes - Pre-Operative Checklist Preoperative Checklist Indicated: Yes Prophylactic Antibiotic Ordered: Yes (VANCOMYCIN DUE TO MRSA RISK) Home Medications Include Beta Uche: Yes Beta Uche Taken Today (Day of Surgery): Yes Beta Uche Taken Yesterday (Day Prior to Surgery): Yes Is VTE Prophylaxis Indicated?: Yes
[2017-02-16] MEDS ORDERED: Acetaminophen IV 1,000 MG/100 ML INFUS..BTL ONE (13:05)
[2017-02-16] MEDS ORDERED: *HR* Phenylephrine 10 MG/ML VIAL ONE (13:30)
[2017-02-16] MEDS ORDERED: Dexamethasone 4 MG/ML VIAL ONE (13:30)
--- NOTE | 2017-02-16 13:40 | Anesthesia Procedures ---
Date of Encounter: 02/16/17 Time of Encounter: 12:50 Procedures: Anesthesia - Arterial Line Consent obtained: written consent Time out performed: No Sedation: Versed (mg): 2 Sedation: Fentanyl (mcg): 100 Local Anesthetic: Lidocaine 1% Amount of Anesthetic used (mls): 1 Size (Gauge): 20 Length (inches): 1 3/4 Technique Used: guide wire technique, direct puncture technique Post-Procedure: line taped into place, dry sterile dressing placed Patient tolerated procedure: well, no complications Complications: none Site: Radial L Vitals: BP 120/80, RR 16, HR 65, SpO2 97
[2017-02-16] MEDS ORDERED: *HR* Heparin 5,000 UNIT/ML VIAL ONE (14:15)
[2017-02-16] MEDS ORDERED: *HR* Magnesium Sulfate 1 GM/2 ML VIAL ONE (14:38)
[2017-02-16] MEDS ORDERED: Protamine Sulfate 50 MG/5 ML VIAL IVP ONE (15:15)
--- NOTE | 2017-02-16 16:10 | Operative Note ---
Date of procedure: 02/16/17 Pre-op diagnosis: Peripheral vascular disease with rest pain Post-op diagnosis: same Procedure: 1. Left common and deep femoral endarterectomy. 2. Right common femoral to left common femoral artery bypass with 6mm ring reinforced PTFE graft. Complications: None Anesthesia: REAGANA Surgeon: Giovanni Buckner Co-Surgeon: Jamie Sparks Estimated blood loss (cc): 150 Specimen: Left femoral plaque Condition: stable Disposition: PACU Procedure in Detail: Indications: The patient is a 56 year old male with a long history of COPD, hypertension, hyperlipidemia and tobacco abuse. He has a long history of severe peripheral vascular disease with disabling claudication. He previously underwent a left iliac stent and left femoral endarterectomy. He recently presented with recurrent and progressive symptoms. He was found to have an occluded left iliac stent and significant femoral arterial disease. His ankle brachial index was consistent with severe disease. Today he reports pain in his left foot at rest. Revascularization has been recommended to alleviate his symptoms and reduce his risk of limb loss. Procedure: The patient was identified in the preoperative area. The risks, benefits, and alternatives of the procedure were discussed. All questions were answered. The patient was taken to the operating room and placed in supine position on the operating room table. After the induction of general endotracheal anesthesia, he was cleaned and draped in normal sterile fashion. An oblique incision was made over the right groin sharply. Hemostasis was obtained with electrocautery. Through a process of blunt, sharp, and electrocautery dissection, the right external iliac artery and femoral arteries were dissected circumferentially and surrounded with vessel loops. An oblique incision was then made over the left groin sharply. Hemostasis was obtained with electrocautery. Significant scar tissue was encountered which increased the complexity of the dissection. Through a process of blunt, sharp, and electrocautery dissection, the left femoral vessels were dissected circumferentially and surrounded with vessel loops. A graft was tunneled between the right and left femoral incisions. The patient received 5000 units of intravenous heparin and additional heparin throughout the procedure to maintain adequate anticoagulation. A longitudinal arteriotomy was then made in the right common femoral artery and then extended into the deep femoral artery. Strong pulsatile flow was noted from the external iliac artery and brisk deep femoral artery retrograde flow was also noted. The graft was then cut to fit the arteriotomy. The graft was anastamosed with a running 6-0 Prolene. The vessels were flushed through the graft. Heparinized saline was infused into the graft lumen. The graft was clamped with an atraumatic clamp. Flow was restored in the right femoral vessels. A longitudinal arteriotomy was made in the left common femoral artery and extended into the deep femoral artery. No proximal flow was noted and the common femoral artery was nearly occluded with intimal hyperplasia and stenotic plaque. Minimal retrograde flow was noted from the left deep femoral artery due to extensive stenotic deep femoral artery plaque. Using a dental freer, a left common and deep femoral artery endarterectomy were then performed. The endpoints was inspected and no elevated flap was noted. The lumen was flushed with heparinized saline. The graft was cut to fit the arteriotomy and then sutured in place with a running 6-0 Prolene. Prior to completing the anastamosis, the femoral vessels were flushed through the graft anastamosis and heparin was infused into the lumen. The anastamosis was completed and flow was restored in the left lower extremity. Thrombin and gelfoam were used to aid in hemostasis. Polyphasic signals were noted distal to the anastamoses. The wounds were irrigated with antibiotic-containing saline. Platelet rich and platelet poor plasma were infused into the wounds. Meticulous hemostasis was obtained throughout the wound with electrocautery. Wounds were reapproximated with layers of 2-0 and 3-0 Vicryl. Skin was reapproximated with 3-0 Monocryl. Sterile dressings were applied. The patient was extubated and taken to recovery room in stable condition.o recovery room in stable condition.
[2017-02-16] MEDS: *HR* HYDROmorphone (PF) 1 MG/ML SYRINGE IVP PRN ×2 (16:11→16:17)
[2017-02-16] MEDS ORDERED: Acetaminophen 325 MG TABLET PO PRN (17:14)
[2017-02-16] MEDS ORDERED: Naloxone 0.4 MG/ML INJ IVP PRN ×2 (17:14)
[2017-02-16] MEDS ORDERED: *HR* Morphine 2 MG/ML SYRINGE IVP PRN (17:14)
[2017-02-16] MEDS ORDERED: *HR* Labetalol 20 MG/4 ML SYRINGE IVP PRN (17:14)
[2017-02-16] MEDS ORDERED: Nitroglycerin 0.4 MG TAB.SUBL SL PRN (17:14)
--- NOTE | 2017-02-16 17:23 | Anesthesia Evaluation Post Op ---
Date of Encounter: 02/16/17 Time of Encounter: 17:21 - Vital Signs Vital Signs: Vital Signs/O2 Sat/Glucose, Most Current Temp Pulse Resp BP Pulse Ox 02/16/17 17:05 97.3 F L 66 16 112/56 95 02/16/17 16:55 97.3 F L 69 16 120/65 95 02/16/17 16:45 65 16 120/73 96 02/16/17 16:35 80 16 112/52 95 02/16/17 16:25 97.2 F L 78 16 127/60 96 02/16/17 16:15 81 16 128/74 96 02/16/17 16:05 81 16 127/85 98 02/16/17 15:55 98.0 F 86 16 118/66 100 - Lungs Lungs: Clear Ascult./Percussion - Airway Airway: Non-obstructed - Cardiovascular Baseline Rhythm - Mental Status Mental Status: Alert & Oriented, Answers Appropriately - Pain Pain Scale: 2 Pain Scale used: Numeric (1 - 10) - Nausea Vomiting Nausea Vomiting: Not Present - Hydration Hydration: Tolerates oral liquids, Faust catheter - Discharge PostOp Status: Discharge Patient to home Anes Supervising Prov Stmt: Pt seen/evaluated, VSS and pt has met criteria for discharge to floor. - MD Tiffanie
[2017-02-16] MEDS ORDERED: *HR* Heparin 5,000 UNIT/ML VIAL SQ SCH (18:00)
[2017-02-16] MEDS: Gabapentin 300 MG CAPSULE PO SCH ×2 (18:16→21:05)
[2017-02-16] MEDS: *HR* Metoprolol 5 MG/5 ML VIAL IVP SCH ×2 (18:22→23:45)
[2017-02-16] MEDS: ceFAZolin 2,000 MG in D5% in Water 100 ML IVPB SCH (18:22)
[2017-02-16] MEDS: *HR* OxyCODONE Immed Rel 5 MG TABLET PO PRN (18:32)
[2017-02-17] MEDS: *HR* OxyCODONE Immed Rel 5 MG TABLET PO PRN (00:51)
[2017-02-17] MEDS: ceFAZolin 2,000 MG in D5% in Water 100 ML IVPB SCH (03:41)
[2017-02-17] MEDS: *HR* OxyCODONE/APAP 5/325 TABLET PO PRN ×2 (03:55→10:03)
[2017-02-17] MEDS: *HR* Metoprolol 5 MG/5 ML VIAL IVP SCH (05:59)
[2017-02-17] MEDS ORDERED: *HR* Heparin 5,000 UNIT/ML VIAL SQ SCH (06:00)
[2017-02-17 06:04] LABS: Basophils % 0.1 %; Hematocrit 38.7 % (37.5-50.1); Hemoglobin 13.6 g/dL (12.9-16.9); Immature Granulocytes % 0.4 % (0-4); Lymphocytes # 0.6 K/mcL (0.6-4.6); Mean Corpuscular HGB Conc 35.1 g/dL (31.6-35.5); Mean Corpuscular Volume 93.9 fL (83.0-100.0); Monocytes # 0.5 K/mcL (0.0-1.3); Monocytes % 4.9 %; Neutrophils # 8.9 K/mcL (1.6-8.9); Platelet Count 176 K/mcL (140-400); Red Blood Count 4.12 M/mcL (4.19-5.50); Red Cell Distribution Width 12.3 % (11.5-14.5); Segmented Neutrophils % 88.6 %
[2017-02-17 06:21] LABS: BUN/Creatinine Ratio 14 (6-26); Blood Urea Nitrogen 12 mg/dL (8-26); Calcium 8.6 mg/dL (8.6-10.8); Carbon Dioxide 25 mEq/L (19-29); Chloride 101 mEq/L (98-109); Glucose 132 mg/dL (70-99); Osmolality,Calculated 278 (280-300); Potassium 4.5 mEq/L (3.5-4.5); Sodium 133 mEq/L (136-145); eGFR For African Americans > 60 (> 60); eGFR For Non-African Americans > 60 (> 60)
[2017-02-17 07:06] VITALS: BP 110/46
--- NOTE | 2017-02-17 07:25 | Discharge Summary ---
Date of Encounter: 02/17/17 Time of Encounter: 08:50 - Discharge Diagnosis (1) Atherosclerosis of [place] arteries of extremities with rest pain, left leg Priority: Primary Status: Acute Comments: The patient is postoperative day #1 after a left femoral endarterectomy and a FEM-FEM bypass. He reports that his foot is feeling much better. His left pedal pulses are palpable. The patient will be discharged today. (2) Unspecified essential hypertension Priority: Secondary Status: Chronic Comments: The patient was counseled regarding atherosclerotic risk factor reduction. (3) CAD (coronary artery disease) Priority: Secondary Status: Chronic Qualifiers: Coronary Disease-Associated Artery/Lesion type: bypass graft, autologous vein Associated angina: with unstable angina Qualified Code(s): I25.710 - Atherosclerosis of autologous vein coronary artery bypass graft(s) with unstable angina pectoris (4) Mixed hyperlipidemia Priority: Secondary Status: Chronic (5) Tobacco abuse Priority: Secondary Status: Chronic Comments: The patient was counseled regarding smoking cessation. - Discharge Medications Prescriptions: OxyCODONE/APAP 5/325 [Percocet 5/325 MG] 1 each PO Q6HR PRN #25 tablet PRN Reason: postoperative pain Home Medications: Albuterol Sulfate [Albuterol Inhaler] 2 puff IH QID PRN 12/10/15 [History] Aspirin Enteric Coated [Aspirin EC] 81 mg PO DAILY 12/10/15 [History] Nitroglycerin [Nitrostat] 0.4 mg SL Q5M PRN 12/10/15 [History] Carvedilol 12.5 mg PO BID 01/09/16 [History] Multivit-Min/FA/Lycopen/Lutein [Centrum Silver Tablet] 1 tab PO DAILY 01/09/16 [ History] Gabapentin [Neurontin] 600 mg PO TID #180 capsule 01/11/16 [Rx] Fluticasone Propionate Nasal [Flonase] 1 spray NS DAILY 07/15/16 [History] Clopidogrel [Plavix] 75 mg PO DAILY #7 tablet 02/03/17 [Rx] Lisinopril [Zestril] 10 mg PO DAILY 02/16/17 [History] Rosuvastatin Calcium [Crestor] 10 mg PO DAILY 02/16/17 [History] OxyCODONE/APAP 5/325 [Percocet 5/325 MG] 1 each PO Q6HR PRN #25 tablet 10/27/17 [Rx] Allergies/Adverse Reactions: 3 Allergy/AdvReac Type Severity Reaction Status Date / Time acetaminophen [From Vicodin] AdvReac Vomiting Verified 02/16/17 10:33 hydrocodone [From Vicodin] AdvReac Vomiting Verified 02/16/17 10:33 Date of admission: 02/16/17 17:10 Primary care physician: Yaquelin Valenzuela DO Procedure(s) Performed: Left femoral endarterectomy and FEM-FEM bypass. Discharging clinician: Giovanni Buckner Anticipated date of discharge: 02/17/17 - Patient Status Disposition: Home, Self-Care Condition: Good Functional capacity at discharge: independent ambulation Overall status at discharge: patient is back to baseline - Discharge Instructions Instructions: Oxycodone/Acetaminophen (By mouth), Femoropopliteal Bypass (DC) Follow Up With: Giovanni Buckner MD [Partnered Physician] - 04/03/17 8:40 am Yaquelin Valenzuela DO [Primary Care Provider] - 02/24/17 10:20 am Additional Instructions: May remove bandage and shower 02/18/17. Wash wound gently and pat to dry. Apply dry gauze to wounds daily for 7 days. No tub baths or swimming until 03/13/17. Call Dr. Buckner at [phone] with questions or concerns. - Diet and Activity Activity: increase activity as tolerated Diet: advance to your usual diet - Hospital Course Hospital course: Mr. Santoro is a 56 year old male with a history of peripheral vascular disease who has developed rest pain in his left foot. He was admitted on 02/16/17 and taken to the OR where he underwent a FEM FEM bypass and a left femoral endarterectomy. On postoperative day #1, his symptoms had resolved and he was healing well. He was discharged on postoperative day #1 in stable condition without complications. Time spent discussing smoking cessation with patient: 3 to 10 minutes - Time Spent with Patient Total time spent providing and/or coordinating discharge services: Exam Vital Signs, Last 4 Hours Temp Pulse Resp BP Pulse Ox 02/17/17 04:00 56 118/62 02/17/17 03:44 97.8 F 67 16 105/60 97 General: Present: Conversant, No Apparent Distress HEENT: Present: Pupils equal Neck: Absent: JVD Cardiac: Present: Reg Rate and Rhythm Lungs: Present: Normal Breath Sounds Neuro: Present: Alert and responsive, No focal deficits noted, Motor nerves grossly intact, Sensory nerves grossly intact Abdomen: Present: Soft Vascular: Present: Normal capillary refill, Pulse, normal, Surgical incisions ( incisions clean, dry and intact, no hematoma). Absent: Cyanosis, Edema Skin: Present: No rashes noted on visualized skin - VTE Documentation of Mechanical Device: Intermittent pneumatic compression device
[2017-02-17] MEDS: Gabapentin 300 MG CAPSULE PO SCH (07:53)
[2017-02-17] MEDS ORDERED: Fluticasone Propionate Nasal 50 MCG/SPRAY BOTTLE NS SCH (09:00)
[2017-02-17] MEDS ORDERED: Aspirin Enteric Coated 81 MG Tablet PO SCH (09:00)
[2017-02-17] MEDS ORDERED: Multivit/Ca/Min/Fe/FA 1 TAB TABLET PO SCH (09:00)
--- NOTE | 2017-02-17 11:39 | Operative Note ---
Date of procedure: 02/16/17 Pre-op diagnosis: PAD and ischemic rest pain Post-op diagnosis: same Procedure: Right to left femoral-femoral bypass graft with 6 mm PTFE Left common femoral artery endarterectomy Complications: None Anesthesia: GETA Surgeon: Giovanni Buckner Co-Surgeon: Jamie Sparks Estimated blood loss (cc): 150 Specimen: Left common femoral artery plaque Condition: stable Disposition: PACU Procedure in Detail: History Glenn Mc is a 56-year-old white male who is well-known to the vascular surgery service. He has undergone previous intervention. The patient had been lost to follow-up. He re-presented via the emergency room with severe pain involving his left lower extremity and a markedly diminished ankle brachial index. Imaging studies were performed and the patient was recommended to undergo reconstructive surgery with a right to left bypass graft due to left iliac artery occlusions. Procedure After informed consent was obtained the patient was taken to the operating room. General endotracheal anesthesia was established. The abdomen groin and upper thighs were sterilely prepped and draped. A timeout protocol was observed. A 2 surgical approach was utilized for this procedure due to the patient's comorbid conditions. This would also facilitate performing an expeditious operation and minimizing blood loss as well as contributing to complex intraoperative decision making. Incisions were made in the groin simultaneously. Dissection was carried down to the femoral vessels. On the left side there was significant scar requiring a prolonged and tedious dissection. Controls obtained of the vessels proximally and distally. A deep subcutaneous tunnel was then created from the right to the left. Heparin was administered in a dose of 5000 units. An 11 blade knife and Thorpe scissors were then used to open the femoral arteries bilaterally after 3 minute delay. Upon opening the left side there was significant plaque and atherosclerotic sclerotic disease and interval hyperplasia present. This was debrided and a formal left common femoral artery endarterectomy was performed. Specimen was submitted for analysis. With this accomplished the bypass graft was then created. This was a right to left femoral-femoral bypass graft using 6 mm PTFE. The anastomoses were performed with 6-0 Prolene suture. After appropriate backbleeding and flushing the graft was opened. Excellent flow was noted to the graft into the left femoral system. Hemostasis was then achieved bilaterally. The wounds were irrigated with antibiotic containing solution. The incisions were then closed using absorbable suture. There were no intraoperative complications. The patient tolerated the procedure well.
== END 2017-02-17 10:55 | disposition home or self-care (01) | DRG 181 ==
LOC: SAMDAY 10:08 → 2NNU 17:10
PROVIDERS: ADMIT Surgery; ATTEND Surgery
PROC: VASFFBG (ICD-10-PCS; 2017-02-16 11:20)

== ENCOUNTER 2017-10-12 11:14 | Inpatient (IN) ==
[~2017-10-12 11:14] MED LIST: Vancomycin 1,000 MG, Sodium Chloride IRRigation 1,000 ML IR ONE
[2017-10-12] MEDS ORDERED: Albuterol 2.5 MG/3 ML NEBULIZER ONE (11:45)
[2017-10-12] MEDS ORDERED: CeFAZolin Syr 2,000MG/20 ML 2,000 MG/20 ML SYRINGE IVPB ONE (11:47)
[2017-10-12] MEDS ORDERED: Albuterol 2.5 MG/3 ML NEBULIZER IH ONE (11:47)
[2017-10-12] MEDS ORDERED: Ringers Solution, Lactated 1,000 ML IVC SCH (12:00)
[2017-10-12] MEDS ORDERED: Acetaminophen IV 1,000 MG/100 ML INFUS..BTL IVPB ONE (12:21)
[2017-10-12] MEDS ORDERED: Famotidine 20 MG/2 ML VIAL IVP ONE (12:21)
--- NOTE | 2017-10-12 12:24 | Anesthesia Evaluation PreOp ---
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 CONTROL TECHNICIAN History: Denies Any Significant HX Other Medical History: Denies Any Significant HX Anesthesia History: No Prior Anesthetic Complications, Past Anesthesia Alcohol Use: occasionally (roughly 6 beers a night) Drug use: none Medications and Allergies Albuterol Sulfate [Albuterol Inhaler] 2 puff IH QID PRN 12/10/15 [History] Aspirin Enteric Coated [Aspirin EC] 81 mg PO DAILY 12/10/15 [History] Nitroglycerin [Nitrostat] 0.4 mg SL Q5M PRN 12/10/15 [History] Carvedilol 12.5 mg PO BID 01/09/16 [History] Multivit-Min/FA/Lycopen/Lutein [Centrum Silver Tablet] 1 tab PO DAILY 01/09/16 [ History] Gabapentin [Neurontin] 600 mg PO TID #180 capsule 01/11/16 [Rx] Fluticasone Propionate Nasal [Flonase] 1 spray NS DAILY 07/15/16 [History] Clopidogrel [Plavix] 75 mg PO DAILY #7 tablet 02/03/17 [Rx] Lisinopril [Zestril] 10 mg PO DAILY 02/16/17 [History] Rosuvastatin Calcium [Crestor] 10 mg PO DAILY 02/16/17 [History] 3 Allergy/AdvReac Type Severity Reaction Status Date / Time acetaminophen [From Vicodin] AdvReac Vomiting Verified 02/16/17 10:33 hydrocodone [From Vicodin] AdvReac Vomiting Verified 02/16/17 10:33 - Meds/Allergy Pre-op Review Medications Reviewed: Yes Allergies Reviewed: Yes Beta Blockers on Current Med List: Yes (carvedilol) If Beta Blockers taken, Date/Time (Last Dose taken): 0600 10/12/2017 Anesthesia Results - Labs Laboratory Tests 01/15/14 10/10/17 10/10/17 05:06 18:38 18:38 WBC Hgb Hct Plt Count PT 10.9 INR 1.0 APTT 29.5 Sodium 135 L Potassium 4.2 Chloride 103 Carbon Dioxide 27 BUN 15 Creatinine 1.00 Est GFR (Non-Af Amer) > 60 Hemoglobin A1c 5.5 10/10/17 18:38 WBC 4.6 Hgb 14.9 Hct 42.5 Plt Count 271 PT INR APTT Sodium Potassium Chloride Carbon Dioxide BUN Creatinine Est GFR (Non-Af Amer) Hemoglobin A1c - Imaging EKG: report reviewed, image reviewed, other (SINUS RHYTHM LEFT ANTERIOR FASCICULAR BLOCK POSSIBLE ANTEROSEPTAL MYOCARDIAL INFARCTION ST \T\ T WAVE ABNORMALITY, CONSIDER ANTEROLATERAL ISCHEMIA PROLONGED QT INTERVAL) Additional studies: stress test: Impression: Perfusion imaging was negative for ischemia. There is a medium sized area of infarct involving the apex and anterolateral wall. Exercise ECG was non-diagnostic for ischemia. Exercise capacity was good. Normal hemodynamic response. Patient had no chest pain with stress. Rare PVCs throughout rest, stress and recovery. Gated EF = 34%. The LV is dilated. Echo 07/07: mpressions: LVEF 30-35%. Mildly dilated left ventricle. Severe segmental left ventricular systolic dysfunction. Moderate left ventricular diastolic dysfunction. Atypical septal motion consistent with post-operative status. Normal right ventricular structure and function. Unable to estimate RVSP due to lack of TR jet. No significant valvular dysfunction. Anesthesia Exam Vital Signs/O2 Sat/Glucose, Most Recent Temp Pulse Resp BP Pulse Ox 97.5 F L 75 18 107/61 96 10/12/17 11:49 10/12/17 11:49 10/12/17 11:49 10/12/17 11:49 10/12/17 11:49 Weight: 75 kg NPO (# of Hours): 8 - HEENT Pupil (Motor): Pupils equal Mallampati: II Denture Type: Upper: Complete, Lower: Complete Oral Opening: Greater than 3 - POLLUTION CONTROL TECHNICIAN POLLUTION CONTROL TECHNICIAN Motor: Normal RUE, Normal LUE, Normal RLE, Normal LLE, Normal Face POLLUTION CONTROL TECHNICIAN Sensory: Normal: RUE, LUE, RLE, LLE, Face - Cardiac Rhythm: Regular Murmur: None - Pulmonary Breath Sounds: bilateral Clear Respiratory Effort: Symmetrical Anesthesia Assess/Plan ASA Score: 3 Modified Erum Scale for Level of Consciousness: Cooperative, oriented, and tranquil Anesthetic Plan: General Monitoring Plan: Standard Monitors, A-Line Recovery Plan: PACU
--- NOTE | 2017-10-12 12:47 | History & Physical Report ---
Date of Encounter: 10/12/17 Time of Encounter: 11:45 24 Hour HP Update - Instructions Instructions: If the History and Physical is less than 30 days old and was completed prior to A.M. admission and or procedure and has NOT been updated on calendar day of procedure please complete this update prior to performing procedure. - Update Patient reports changes in Medical Condition: No Changes in examination, assessment, or condition: No Changes in Medication: No Preop tests/diagnostics Reviewed: Yes Surgery Remains Indicated: Yes Consent for Planned Operative Procedure(s) Verified: Yes - Pre-Operative Checklist Preoperative Checklist Indicated: Yes Prophylactic Antibiotic Ordered: Yes (VANCOMYCIN DUE TO MRSA RISK) Home Medications Include Beta Uche: Yes Beta Uche Taken Today (Day of Surgery): Yes Beta Uche Taken Yesterday (Day Prior to Surgery): Yes Is VTE Prophylaxis Indicated?: Yes
[2017-10-12] MEDS ORDERED: Heparin 1,000 UNITS/500 mL 500 ML ONE ×2 (13:00→14:19)
[2017-10-12] MEDS ORDERED: *HR* Propofol 200 MG/20 ML VIAL IVP ONE (13:10)
[2017-10-12] MEDS ORDERED: *HR* Etomidate 40 MG/20 ML VIAL IVP ONE (13:10)
[2017-10-12] MEDS ORDERED: *HR* FentaNYL (PF) 100 MCG/2 ML VIAL ONE ×2 (13:11→14:43)
[2017-10-12] MEDS ORDERED: *HR* Midazolam HCl 2 MG/2 ML VIAL ONE (13:11)
[2017-10-12] MEDS ORDERED: Lidocaine -MPF 4% 5 ML AMPUL ONE (13:16)
[2017-10-12] MEDS ORDERED: Dexamethasone 4 MG/ML VIAL ONE (13:16)
[2017-10-12] MEDS ORDERED: Lidocaine -MPF 2% 2 ML VIAL ONE (13:16)
[2017-10-12] MEDS ORDERED: Ondansetron 4 MG/2 ML VIAL ONE (13:16)
[2017-10-12] MEDS ORDERED: *HR* Rocuronium Bromide 50 MG/5 ML VIAL ONE (13:17)
--- NOTE | 2017-10-12 14:34 | Anesthesia Procedures ---
Date of Encounter: 10/12/17 Time of Encounter: 14:05 Procedures: Anesthesia - Arterial Line Consent obtained: verbal consent Time out performed: Yes Sedation: Versed (mg): 2 Sedation: Fentanyl (mcg): 100 Supplemental Oxygen via Nasal Cannula (L/min): 2 Local Anesthetic: Lidocaine 1% Amount of Anesthetic used (mls): 0.5 Size (Gauge): 20 Length (inches): 1 3/4 Technique Used: sterile prep, guide wire technique Post-Procedure: line taped into place, dry sterile dressing placed Patient tolerated procedure: well, no complications Complications: none Site: Radial R Vitals: see nurses notes Comments: see nurses notes, patient tolerated procedure
[2017-10-12] MEDS ORDERED: EPHEDrine 50 MG/ML VIAL ONE (15:02)
[2017-10-12] MEDS ORDERED: *HR* Promethazine 25 MG/ML VIAL IVP PRN (15:33)
[2017-10-12] MEDS ORDERED: *HR* HYDROmorphone (PF) 1 MG/ML SYRINGE IVP PRN (15:33)
[2017-10-12] MEDS ORDERED: Ondansetron 4 MG/2 ML VIAL IVP ONE (15:33)
[2017-10-12] MEDS ORDERED: *HR* OxyCODONE Immed Rel 5 MG TABLET PO PRN (15:33)
[2017-10-12] MEDS ORDERED: *HR* Heparin 5,000 UNIT/ML VIAL ONE (15:35)
[2017-10-12] MEDS ORDERED: *HR* PHENYLEPHRINE 1,000 MCG/10 ML SYRINGE IVP ONE (15:49)
[2017-10-12] MEDS ORDERED: *HR* HYDROmorphone (PF) 1 MG/ML SYRINGE ONE (16:32)
--- NOTE | 2017-10-12 17:50 | Operative Note ---
Date of procedure: 10/12/17 Pre-op diagnosis: Peripheral vascular disease with rest pain Post-op diagnosis: same Procedure: 1. Right common femoral to left common femoral artery bypass graft thrombectomy with 5-Polish Gypsy embolectomy catheter. 2. Right common and deep femoral endarterectomy. Complications: None Anesthesia: GETA Surgeon: Giovanni Buckner Was there an publisher assistant present: No Estimated blood loss (cc): 100 Specimen: None Condition: stable Disposition: same day Procedure in Detail: Indications: The patient is a 57-year-old male with a history of hyperlipidemia , hypertension, coronary artery disease and tobacco abuse. The patient has extensive history of peripheral vascular disease as previously undergone an a left iliac stent. His stent occluded and he later underwent a femoral to femoral artery bypass. He developed recurrent disabling claudication. His CT scan revealed an occluded femoral to femoral artery bypass. Revascularization was recommended to alleviate his symptoms. Procedure: The patient was identified in the preoperative area. The risks, benefits, and alternatives of the procedure were discussed. All questions were answered. The patient was taken to the operating room and placed in supine position on the operating room table. After the induction of general endotracheal anesthesia, he was cleaned and draped in normal sterile fashion. An oblique incision was made through the scar over the right groin sharply. Hemostasis was obtained with electrocautery. Through a process of blunt, sharp , and electrocautery dissection, the right femoral vessels and bypass graft limb were dissected circumferentially and surrounded with vessel loops. The patient was given 5000 units of intravenous heparin. After waiting adequate time for the heparin to circulate the vessels and graft were occluded and a longitudinal graftotomy was made through the right limb of the graft. Dense organized thrombus was removed under direct vision. A 5-[place] Gypsy embolectomy catheter was then passed through the graft into the [place] left femoral vessels. The catheter was drawn and significant thrombus was removed after multiple passes. Strong, pulsatile flow was then noted through the graft. Heparinized saline was flushed through the graft and the graft was occluded. Significant plaque and intimal hyperplasia was noted in the right common and deep femoral artery. Using a dental freer a right common and deep femoral endarterectomy was performed. Vigorous retrograde flow was then noted through the right deep femoral artery. Heparinized saline was infused into the lumen. The graftotomy was reapproximated with running 6-0 Prolene. Prior to completing anastomosis the vessels were flushed through the arteriotomy and then heparinized saline was infused into the lumen. The closure was completed and flow was restored in the right femoral vessels. Polyphasic signals were noted through the deep femoral artery. Thrombin and Gelfoam were used to aid in hemostasis. The wounds were irrigated with antibiotic-containing saline. Platelet rich and platelet poor plasma were infused into the wounds. Meticulous hemostasis was obtained throughout the wound with electrocautery. Wounds were reapproximated with layers of 2-0 and 3-0 Vicryl. Skin was reapproximated with 3-0 Monocryl. Sterile dressing was applied. The patient was extubated and taken to recovery room in stable condition.
[2017-10-12] MEDS ORDERED: OXYCODONE Oral CONC 10 MG/0.5 ML ORAL.SYG SL PRN ×2 (19:15)
[2017-10-12] MEDS ORDERED: Nitroglycerin 0.4 MG TAB.SUBL SL PRN (19:15)
[2017-10-12] MEDS ORDERED: *HR* Labetalol 20 MG/4 ML SYRINGE IVP PRN (19:15)
[2017-10-12] MEDS ORDERED: Naloxone 0.4 MG/ML INJ IVP PRN (19:15)
[2017-10-12] MEDS ORDERED: *HR* OxyCODONE/APAP 5/325 TABLET PO PRN (19:15)
[2017-10-12] MEDS ORDERED: Acetaminophen 325 MG TABLET PO PRN (19:15)
[2017-10-12] MEDS ORDERED: Ondansetron 4 MG/2 ML VIAL IVP PRN (19:15)
[2017-10-12] MEDS: *HR* OxyCODONE Immed Rel 5 MG TABLET PO PRN (21:04)
[2017-10-12] MEDS: Gabapentin 300 MG CAPSULE PO SCH ×2 (21:04→21:12)
[2017-10-12] MEDS: *HR* Metoprolol 5 MG/5 ML VIAL IVP SCH ×2 (21:05→23:38)
[2017-10-13] MEDS: *HR* OxyCODONE Immed Rel 5 MG TABLET PO PRN (04:13)
[2017-10-13 04:19] LABS: Basophils % 0.1 %; Hematocrit 38.7 % (37.5-50.1); Hemoglobin 13.7 g/dL (12.9-16.9); Immature Granulocytes % 0.6 % (0-4); Lymphocytes # 0.5 K/mcL (0.6-4.6); Lymphocytes % 6.8 %; Mean Corpuscular HGB Conc 35.4 g/dL (31.6-35.5); Mean Corpuscular Hemoglobin 33.1 pg (28.0-33.3); Mean Corpuscular Volume 93.5 fL (83.0-100.0); Mean Platelet Volume 9.2 fL (9.4-12.4); Monocytes # 0.3 K/mcL (0.0-1.3); Monocytes % 4.2 %; Neutrophils # 6.9 K/mcL (1.6-8.9); Platelet Count 196 K/mcL (140-400); Red Blood Count 4.14 M/mcL (4.19-5.50); Red Cell Distribution Width 11.8 % (11.5-14.5); Segmented Neutrophils % 88.3 %
[2017-10-13 04:31] LABS: BUN/Creatinine Ratio 20 (6-26); Blood Urea Nitrogen 16 mg/dL (6-20); Calcium 8.8 mg/dL (8.6-10.3); Carbon Dioxide 21 mEq/L (23-29); Chloride 104 mEq/L (98-107); Glucose 119 mg/dL (70-105); Osmolality,Calculated 276 (280-300); Potassium 4.6 mEq/L (3.5-5.1); Sodium 132 mEq/L (136-145); eGFR For African Americans > 60 (> 60); eGFR For Non-African Americans > 60 (> 60)
[2017-10-13] MEDS: *HR* Metoprolol 5 MG/5 ML VIAL IVP SCH (05:36)
[2017-10-13] MEDS ORDERED: *HR* Heparin 5,000 UNIT/ML VIAL SQ SCH ×2 (06:00)
--- NOTE | 2017-10-13 07:43 | Discharge Summary ---
Orders not resulted at time of discharge: Pending orders 10/11/17 14:38 Red Blood Cells [BBK] Routine 10/12/17 16:50 Surgical Pathology [PTH] Routine Date of Encounter: 10/13/17 Time of Encounter: 07:55 - Discharge Diagnosis (1) Atheroscler nonbiologic bypass graft both legs w/intermit claudication Status: Acute (2) CAD (coronary artery disease) Status: Chronic Qualifiers: Coronary Disease-Associated Artery/Lesion type: bypass graft, autologous vein Associated angina: with unstable angina Qualified Code(s): I25.710 - Atherosclerosis of autologous vein coronary artery bypass graft(s) with unstable angina pectoris (3) Cardiomyopathy Status: Chronic Qualifiers: Cardiomyopathy type: ischemic Qualified Code(s): I25.5 - Ischemic cardiomyopathy (4) 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 Santoro is a 57 year old male with a history of hypertension, hyperlipidemia, coronary artery disease, chronic heart failure, tobacco abuse and peripheral vascular disease. The patient was admitted and underwent a femoral to femoral artery bypass graft thrombectomy and right femoral endarterectomy. He tolerated the procedure well and was discharged on postopertive day #1 without complications. Time spent discussing smoking cessation with patient: 3 to 10 minutes - Time Spent with Patient Total time spent providing and/or coordinating discharge services: - Discharge Medications Prescriptions: OxyCODONE/APAP 5/325 [Percocet 5/325 MG] 1 each PO Q6HR PRN 5 Days #20 tablet PRN Reason: Postoperative pain Home Medications: Albuterol Sulfate [Albuterol Inhaler] 2 puff IH QID PRN 12/10/15 [History] Aspirin Enteric Coated [Aspirin EC] 81 mg PO DAILY 12/10/15 [History] Nitroglycerin [Nitrostat] 0.4 mg SL Q5M PRN 12/10/15 [History] Carvedilol 12.5 mg PO BID 01/09/16 [History] Multivit-Min/FA/Lycopen/Lutein [Centrum Silver Tablet] 1 tab PO DAILY 01/09/16 [ History] Gabapentin [Neurontin] 600 mg PO TID #180 capsule 01/11/16 [Rx] Fluticasone Propionate Nasal [Flonase] 1 spray NS DAILY 07/15/16 [History] Clopidogrel [Plavix] 75 mg PO DAILY #7 tablet 02/03/17 [Rx] Lisinopril [Zestril] 20 mg PO DAILY 10/12/17 [History] Rosuvastatin Calcium 20 mg PO HS 10/12/17 [History] OxyCODONE/APAP 5/325 [Percocet 5/325 MG] 1 each PO Q6HR PRN 5 Days #20 tablet [Rx] Allergies/Adverse Reactions: 3 Allergy/AdvReac Type Severity Reaction Status Date / Time acetaminophen [From Vicodin] AdvReac Vomiting Verified 02/16/17 10:33 hydrocodone [From Vicodin] AdvReac Vomiting Verified 02/16/17 10:33 Date of admission: 10/12/17 17:57 Primary care physician: Nathan Norton MD Procedure(s) Performed: Femoral to femoral artery bypass graft thrombectomy and right femoral endarterectomy Discharging clinician: Giovanni Buckner Anticipated date of discharge: 10/13/17 Exam Vital Signs, Last 4 Hours Temp Pulse Resp BP Pulse Ox 10/13/17 03:57 98.6 F 63 18 97/53 91 - Patient Status Disposition: Home, Self-Care Condition: Good Functional capacity at discharge: independent ambulation Overall status at discharge: patient is back to baseline - Discharge Instructions Instructions: Oxycodone/Acetaminophen (By mouth), Cigarette Smoking and Your Health, Animal Herder (GEN), Peripheral Vascular Disease, Animal Herder (GEN ) Follow Up With: Evi Porter DO [Resident] - 10/20/17 10:00 am Giovanni Buckner MD [Partnered Physician] - 11/28/17 3:30 pm Additional Instructions: May remove bandages and shower on 10/14/2017. Wash wounds gently and pat to dry. Apply dry gauze to wounds daily for 7 days. No tub baths or swimming until 11/05/2017. Call Dr. Buckner [phone] with questions or concerns. - Diet and Activity Activity: increase activity as tolerated Diet: low fat, low cholesterol - VTE Documentation of Mechanical Device: Intermittent pneumatic compression device
[2017-10-13 07:58] VITALS: BP 127/86
[2017-10-13] MEDS: Gabapentin 300 MG CAPSULE PO SCH (08:31)
[2017-10-13] MEDS ORDERED: Fluticasone Propionate Nasal 50 MCG/SPRAY BOTTLE NS SCH (09:00)
[2017-10-13] MEDS ORDERED: Multivit/Ca/Min/Fe/FA 1 TAB TABLET PO SCH (09:00)
[2017-10-13] MEDS ORDERED: Aspirin Enteric Coated 81 MG Tablet PO SCH (09:00)
== END 2017-10-13 11:57 | disposition home or self-care (01) | DRG 181 ==
LOC: SAMDAY 11:14 → 2NNU 17:57
PROVIDERS: ADMIT Surgery; ATTEND Surgery
PROC: VASFFBG (ICD-10-PCS; 2017-10-12 13:10)

== ENCOUNTER 2020-03-10 17:05 | Observation (INO) ==
[2020-03-10] MEDS ORDERED: Nitroglycerin 0.4 MG TAB.SUBL SL PRN (17:27)
[2020-03-10 18:01] LABS: Prothrombin Time 11.3 Seconds (9.4-12.1)
[2020-03-10 18:09] LABS: Basophils % 0.8 %; Eosinophils # 0.3 K/mcL (0.0-0.6); Eosinophils % 4.7 %; Hematocrit 43.8 % (37.5-50.1); Hemoglobin 15.2 g/dL (12.9-16.9); Immature Granulocytes % 0.6 % (0-4); Lymphocytes # 1.2 K/mcL (0.6-4.6); Lymphocytes % 21.8 %; Mean Corpuscular HGB Conc 34.7 g/dL (31.6-35.5); Mean Corpuscular Hemoglobin 33.6 pg (28.0-33.3); Mean Corpuscular Volume 96.7 fL (83.0-100.0); Mean Platelet Volume 9.4 fL (9.4-12.4); Monocytes # 0.6 K/mcL (0.0-1.3); Monocytes % 11.2 %; Neutrophils # 3.2 K/mcL (1.6-8.9); Platelet Count 227 K/mcL (140-400); Red Blood Count 4.53 M/mcL (4.19-5.50); Red Cell Distribution Width 12.4 % (11.5-14.5); Segmented Neutrophils % 60.9 %; White Blood Count 5.3 K/mcL (4.3-11.1)
[2020-03-10 18:17] LABS: BUN/Creatinine Ratio 12 (6-26); Blood Urea Nitrogen 11 mg/dL (8-23); Calcium 9.8 mg/dL (8.6-10.3); Carbon Dioxide 23 mEq/L (23-29); Chloride 105 mEq/L (98-107); Glucose 98 mg/dL (70-105); Osmolality,Calculated 277 (280-300); Potassium 4.3 mEq/L (3.5-5.1); Sodium 134 mEq/L (136-145); Troponin I 0.03 ng/mL (< 0.04); eGFR For African Americans > 60 (> 60); eGFR For Non-African Americans > 60 (> 60)
[2020-03-10] MEDS ORDERED: Isovue-370 500 ML BOTTLE IVP ONE (18:48)
[2020-03-10] MEDS ORDERED: *HR* Heparin 5,000 UNIT/ML VIAL IVP ONE (20:09)
[2020-03-10] MEDS ORDERED: Aspirin 325 MG TABLET PO ONE (20:09)
[2020-03-10] MEDS ORDERED: *HR* Heparin 5,000 UNIT/ML VIAL IVP PRN ×2 (20:09)
[2020-03-10] MEDS ORDERED: Heparin 25,000UNIT/250ML 1/2NS 25,000 UNIT/250 ML IV.SOLN IVC SCH (20:15)
[2020-03-10] MEDS ORDERED: Ondansetron 4 MG/2 ML VIAL IVP PRN (20:27)
[2020-03-10] MEDS ORDERED: Acetaminophen 325 MG TABLET PO PRN (20:27)
[2020-03-10] MEDS ORDERED: Naloxone 0.4 MG/ML INJ IVP PRN (20:27)
[2020-03-10 21:08] LABS: Hematocrit 42.7 % (37.5-50.1); Hemoglobin 14.9 g/dL (12.9-16.9); Mean Corpuscular HGB Conc 34.9 g/dL (31.6-35.5); Mean Corpuscular Hemoglobin 34.3 pg (28.0-33.3); Mean Corpuscular Volume 98.2 fL (83.0-100.0); Mean Platelet Volume 9.3 fL (9.4-12.4); Platelet Count 200 K/mcL (140-400); Red Blood Count 4.35 M/mcL (4.19-5.50); Red Cell Distribution Width 12.5 % (11.5-14.5); White Blood Count 4.7 K/mcL (4.3-11.1)
[2020-03-10 21:17] LABS: Prothrombin Time 11.4 Seconds (9.4-12.1)
[2020-03-10 21:18] LABS: Heparin anti-factor XA UFH < 0.04 IU/mL (0.30-0.70)
[2020-03-10] MEDS: Gabapentin 400 MG CAPSULE PO SCH (22:51)
[2020-03-10] MEDS: carvediloL 6.25 MG TABLET PO SCH (22:51)
[2020-03-11 04:13] LABS: Basophils % 0.9 %; Eosinophils # 0.2 K/mcL (0.0-0.6); Eosinophils % 3.6 %; Hematocrit 42.4 % (37.5-50.1); Hemoglobin 14.5 g/dL (12.9-16.9); Immature Granulocytes % 0.5 % (0-4); Lymphocytes # 1.1 K/mcL (0.6-4.6); Lymphocytes % 24.1 %; Mean Corpuscular HGB Conc 34.2 g/dL (31.6-35.5); Mean Corpuscular Hemoglobin 33.1 pg (28.0-33.3); Mean Corpuscular Volume 96.8 fL (83.0-100.0); Mean Platelet Volume 9.3 fL (9.4-12.4); Monocytes # 0.6 K/mcL (0.0-1.3); Monocytes % 12.4 %; Neutrophils # 2.6 K/mcL (1.6-8.9); Platelet Count 211 K/mcL (140-400); Red Blood Count 4.38 M/mcL (4.19-5.50); Red Cell Distribution Width 12.4 % (11.5-14.5); Segmented Neutrophils % 58.5 %; White Blood Count 4.4 K/mcL (4.3-11.1)
[2020-03-11 04:33] LABS: Alanine Aminotransferase 12 Units/L (7-52); Albumin 3.9 g/dL (3.5-5.7); Albumin/Globulin Ratio 1.9 (1.1-2.2); Alkaline Phosphatase 71 Units/L (34-104); Aspartate Amino Transferase 15 Units/L (13-39); BUN/Creatinine Ratio 15 (6-26); Bilirubin,Total 0.4 mg/dL (0.3-1.0); Blood Urea Nitrogen 15 mg/dL (8-23); Calcium 9.4 mg/dL (8.6-10.3); Carbon Dioxide 26 mEq/L (23-29); Chloride 104 mEq/L (98-107); Globulin 2.1 g/dL (2.4-3.5); Glucose 80 mg/dL (70-105); Osmolality,Calculated 280 (280-300); Potassium 4.2 mEq/L (3.5-5.1); Sodium 135 mEq/L (136-145); eGFR For African Americans > 60 (> 60); eGFR For Non-African Americans > 60 (> 60)
[2020-03-11] MEDS: Gabapentin 400 MG CAPSULE PO SCH ×3 (08:53→19:50)
[2020-03-11] MEDS: Aspirin Enteric Coated 81 MG Tablet PO SCH (08:53)
[2020-03-11] MEDS: carvediloL 6.25 MG TABLET PO SCH ×2 (08:53→19:26)
[2020-03-11] MEDS: Furosemide 40 MG TABLET PO SCH (08:53)
[2020-03-11] MEDS: Spironolactone 25 MG TABLET PO SCH (14:56)
[2020-03-11] MEDS: lisinopriL 20 MG TABLET PO SCH (14:56)
[2020-03-11] MEDS: *HR* Heparin 5,000 UNIT/ML VIAL SQ SCH (17:46)
[2020-03-11] MEDS: Budesonide/Formoterol 160/4.5 1 PUFF INH IH SCH (22:03)
[2020-03-12] MEDS: *HR* Heparin 5,000 UNIT/ML VIAL SQ SCH (05:12)
[2020-03-12 06:36] LABS: Mean Corpuscular HGB Conc 34.9 g/dL (31.6-35.5); Mean Corpuscular Volume 97.5 fL (83.0-100.0); Mean Platelet Volume 9.2 fL (9.4-12.4); Platelet Count 214 K/mcL (140-400); Red Blood Count 4.82 M/mcL (4.19-5.50); Red Cell Distribution Width 12.3 % (11.5-14.5); White Blood Count 5.5 K/mcL (4.3-11.1)
[2020-03-12 06:39] LABS: Hemoglobin 16.4 g/dL (12.9-16.9)
[2020-03-12 07:04] LABS: BUN/Creatinine Ratio 21 (6-26); Blood Urea Nitrogen 20 mg/dL (8-23); Calcium 9.8 mg/dL (8.6-10.3); Carbon Dioxide 24 mEq/L (23-29); Chloride 102 mEq/L (98-107); Glucose 125 mg/dL (70-105); Osmolality,Calculated 280 (280-300); Potassium 4.2 mEq/L (3.5-5.1); Sodium 133 mEq/L (136-145); eGFR For African Americans > 60 (> 60); eGFR For Non-African Americans > 60 (> 60)
[2020-03-12] MEDS: Aspirin Enteric Coated 81 MG Tablet PO SCH (08:36)
[2020-03-12] MEDS: lisinopriL 20 MG TABLET PO SCH (08:37)
[2020-03-12] MEDS: carvediloL 6.25 MG TABLET PO SCH (08:37)
[2020-03-12] MEDS: Spironolactone 25 MG TABLET PO SCH (08:38)
[2020-03-12] MEDS: Furosemide 40 MG TABLET PO SCH (08:38)
[2020-03-12 10:00] VITALS: BP 149/82
[2020-03-12] MEDS ORDERED: Tiotropium 18 MCG inhalation IH SCH (10:00)
[2020-03-12] MEDS: Gabapentin 400 MG CAPSULE PO SCH (10:35)
[2020-03-12] MEDS: Budesonide/Formoterol 160/4.5 1 PUFF INH IH SCH (11:09)
== END 2020-03-12 11:12 | disposition home or self-care (01) ==
LOC: 3BNU 17:05 → EMEROOARM 17:05 → 3BNU 22:14
PROVIDERS: ADMIT Internal Medicine; ATTEND Internal Medicine

== ENCOUNTER 2021-05-07 16:07 | Observation (INO) ==
[2021-05-07 19:53] LABS: Basophils # 0.1 K/mcL (0.0-0.2); Basophils % 0.9 %; Eosinophils # 0.2 K/mcL (0.0-0.6); Hematocrit 45.4 % (37.5-50.1); Hemoglobin 15.9 g/dL (12.9-16.9); Immature Granulocytes % 0.4 % (0-4); Lymphocytes # 1.2 K/mcL (0.6-4.6); Mean Platelet Volume 8.9 fL (9.4-12.4); Monocytes # 0.7 K/mcL (0.0-1.3); Monocytes % 10.1 %; Neutrophils # 4.7 K/mcL (1.6-8.9); Platelet Count 210 K/mcL (140-400); Red Blood Count 4.68 M/mcL (4.19-5.50); Red Cell Distribution Width 13.3 % (11.5-14.5); Segmented Neutrophils % 68.6 %; White Blood Count 6.9 K/mcL (4.3-11.1)
[2021-05-07] MEDS ORDERED: Isovue-370 500 ML BOTTLE IVP ONE (19:53)
[2021-05-07 20:17] LABS: Alanine Aminotransferase 32 Units/L (7-52); Albumin 4.5 g/dL (3.5-5.7); Albumin/Globulin Ratio 1.6 (1.1-2.2); Alkaline Phosphatase 103 Units/L (34-104); Aspartate Amino Transferase 25 Units/L (13-39); BUN/Creatinine Ratio 12 (6-26); Bilirubin,Direct 0.1 mg/dL (0.0-0.2); Bilirubin,Indirect 0.3 mg/dL (0.0-1.0); Bilirubin,Total 0.4 mg/dL (0.3-1.0); Blood Urea Nitrogen 13 mg/dL (8-23); Carbon Dioxide 26 mEq/L (23-29); Chloride 103 mEq/L (98-107); Globulin 2.8 g/dL (2.4-3.5); Glucose 97 mg/dL (70-105); Osmolality,Calculated 280 (280-300); Potassium 3.8 mEq/L (3.5-5.1); Sodium 135 mEq/L (136-145); Total Protein 7.3 g/dL (6.4-8.9); Troponin I 0.04 ng/mL (< 0.04); eGFR For African Americans > 60 (> 60); eGFR For Non-African Americans > 60 (> 60)
[2021-05-07] MEDS ORDERED: Aspirin 81 MG TAB.CHEW PO ONE (20:42)
[2021-05-07 21:30] LABS: Influenza A PCR Negative (Negative); Influenza B PCR Negative (Negative); Resp. Syncytial Virus PCR Negative (Negative)
[2021-05-07 21:45] LABS: SARS-CoV-2 by PCR (In House) Negative (Negative)
[2021-05-08] MEDS ORDERED: Perflutren Lipid Microsphere 1.3 ML in 0.9 % Sodium Chloride 8.7 ML IVP PRN (00:13)
[2021-05-08] MEDS ORDERED: *HR* Heparin 5,000 UNIT/ML VIAL IVP ONE (00:25)
[2021-05-08] MEDS ORDERED: *HR* Heparin 5,000 UNIT/ML VIAL IVP PRN ×2 (00:25)
[2021-05-08] MEDS ORDERED: Naloxone 0.4 MG/ML INJ IVP PRN (00:27)
[2021-05-08] MEDS ORDERED: Heparin 25,000UNIT/250ML 1/2NS 25,000 UNIT/250 ML IV.SOLN IVC SCH (00:30)
[2021-05-08] MEDS ORDERED: Acetaminophen 325 MG TABLET PO PRN (00:32)
[2021-05-08] MEDS ORDERED: Ondansetron 4 MG/2 ML VIAL IVP PRN (00:32)
[2021-05-08] MEDS ORDERED: Nitroglycerin 0.4 MG TAB.SUBL SL PRN (00:36)
[2021-05-08] MEDS ORDERED: Morphine Sulfate 2 MG/ML SYRINGE IVP PRN (00:36)
[2021-05-08 02:21] LABS: Hematocrit 42.1 % (37.5-50.1); Hemoglobin 14.5 g/dL (12.9-16.9); Mean Corpuscular HGB Conc 34.4 g/dL (31.6-35.5); Mean Corpuscular Hemoglobin 33.6 pg (28.0-33.3); Mean Corpuscular Volume 97.7 fL (83.0-100.0); Platelet Count 184 K/mcL (140-400); Red Blood Count 4.31 M/mcL (4.19-5.50); Red Cell Distribution Width 13.1 % (11.5-14.5); White Blood Count 4.9 K/mcL (4.3-11.1)
[2021-05-08 02:37] LABS: INR 1.1; Prothrombin Time 12.1 Seconds (9.4-12.1)
[2021-05-08 02:40] LABS: BUN/Creatinine Ratio 13 (6-26); Blood Urea Nitrogen 14 mg/dL (8-23); Calcium 9.4 mg/dL (8.6-10.3); Carbon Dioxide 27 mEq/L (23-29); Chloride 102 mEq/L (98-107); Chol/HDL Ratio 5.1 (0-4.9); Cholesterol 265 mg/dL (< 200); Glucose 110 mg/dL (70-105); HDL Cholesterol 52 mg/dL (40-59); LDL Cholesterol,Calculated 192 mg/dL (< 100); Magnesium 1.8 mg/dL (1.6-2.6); Osmolality,Calculated 283 (280-300); Potassium 3.8 mEq/L (3.5-5.1); Sodium 136 mEq/L (136-145); Triglycerides 107 mg/dL (< 150); eGFR For African Americans > 60 (> 60); eGFR For Non-African Americans > 60 (> 60)
[2021-05-08] MEDS ORDERED: Aspirin Enteric Coated 81 MG Tablet PO SCH (09:00)
[2021-05-08 09:05] LABS: Estimated Average Glucose 126 mg/dl
[2021-05-08] MEDS ORDERED: lisinopriL 20 MG TABLET PO SCH (12:30)
[2021-05-08] MEDS ORDERED: Metoprolol XL (24 HR) Succ 25 MG TAB.ER.24H PO SCH (12:30)
[2021-05-08] MEDS ORDERED: Furosemide 40 MG TABLET PO SCH (12:30)
[2021-05-08] MEDS ORDERED: Ipratropium/Albuterol Neb 3 ML IH PRN (12:58)
[2021-05-08] MEDS ORDERED: Spironolactone 12.5 MG TABLET PO SCH (13:30)
[2021-05-08] MEDS ORDERED: Ranolazine 500 MG TAB.ER.12H PO SCH (14:00)
[2021-05-08] MEDS ORDERED: Gabapentin 400 MG CAPSULE PO SCH (15:00)
[2021-05-08 17:04] VITALS: BP 147/92; PULSE 84; TEMP 97.8; O2SAT 94
[2021-05-08] MEDS ORDERED: Budesonide/Formoterol 160/4.5 1 PUFF INH IH SCH (22:00)
[2021-05-09] MEDS ORDERED: Tiotropium 10 INH DOSE IH SCH (09:00)
== END 2021-05-08 18:15 | disposition home or self-care (01) ==
LOC: EMEROOARM 16:07 → 2ANU 16:07 → SUATTDRO 21:36 → 2ANU 21:52
PROVIDERS: ADMIT Internal Medicine; ATTEND Family Medicine

== ENCOUNTER 2021-12-23 14:30 | Inpatient (IN) ==
[2021-12-23 15:08] LABS: Basophils % 0.3 %; Eosinophils % 0.2 %; Hematocrit 41.4 % (37.5-50.1); Hemoglobin 14.9 g/dL (12.9-16.9); Immature Granulocytes % 0.5 % (0-4); Lymphocytes # 0.9 K/mcL (0.6-4.6); Lymphocytes % 8.4 %; Mean Corpuscular Hemoglobin 34.5 pg (28.0-33.3); Mean Corpuscular Volume 95.8 fL (83.0-100.0); Monocytes # 0.8 K/mcL (0.0-1.3); Monocytes % 7.5 %; Neutrophils # 9.3 K/mcL (1.6-8.9); Platelet Count 291 K/mcL (140-400); Red Blood Count 4.32 M/mcL (4.19-5.50); Red Cell Distribution Width 12.7 % (11.5-14.5); Segmented Neutrophils % 83.1 %; White Blood Count 11.1 K/mcL (4.3-11.1)
[2021-12-23 15:39] LABS: Albumin 4.4 g/dL (3.5-5.7); Albumin/Globulin Ratio 1.5 (1.1-2.2); Bilirubin,Direct 0.2 mg/dL (0.0-0.2); Bilirubin,Indirect 0.4 mg/dL (0.0-1.0); Bilirubin,Total 0.6 mg/dL (0.3-1.0); Calcium 10.2 mg/dL (8.6-10.3); Potassium 3.6 mEq/L (3.5-5.1); Total Protein 7.4 g/dL (6.4-8.9)
[2021-12-23] MEDS ORDERED: 0.9 % Sodium Chloride 1,000 ML IVC ONE ×2 (15:40→18:41)
[2021-12-23] MEDS ORDERED: Ondansetron 4 MG/2 ML VIAL IVP ONE (15:40)
[2021-12-23] MEDS ORDERED: Morphine Sulfate 2 MG/ML SYRINGE IVP ONE ×2 (15:40→19:22)
[2021-12-23] MEDS ORDERED: Iopamidol - 370 500 ML MLS IVP ONE (16:18)
[2021-12-23 17:44] LABS: Bilirubin,Urine Negative (Negative); Blood,Urine Negative (Negative); Clarity,Urine Clear (Clear); Color,Urine Light-Yellow (Yellow); Glucose,Urine (UA) Normal (Normal); Ketones,Urine Negative (Negative); Leukocyte Esterase,Urine Negative (Negative); Nitrite,Urine Negative (Negative); Protein,Urine Negative (Neg-Trace); Specific Gravity,Urine 1.022 (1.010-1.025); Urobilinogen,Urine Normal (Normal)
[2021-12-23] MEDS ORDERED: Naloxone 0.4 MG/ML INJ IVP PRN (19:24)
[2021-12-23] MEDS ORDERED: Ondansetron 4 MG/2 ML VIAL IVP PRN (19:24)
[2021-12-23] MEDS ORDERED: 0.9 % Sodium Chloride 1,000 ML IVC SCH (19:30)
[2021-12-23] MEDS ORDERED: D5% in Water 1,000 ML IVC PRN (20:45)
[2021-12-23] MEDS ORDERED: Dextrose Gel 15 GM/37.5 ML TUBE PO PRN ×2 (20:45)
[2021-12-23] MEDS ORDERED: *HR* Dextrose 50 % in Water (Syg) 50 ML SYRINGE IVP PRN (20:45)
[2021-12-24] MEDS: Morphine Sulfate 2 MG/ML SYRINGE IVP PRN ×5 (01:01→21:54)
[2021-12-24 03:33] LABS: Hematocrit 35.9 % (37.5-50.1); Mean Corpuscular HGB Conc 34.8 g/dL (31.6-35.5); Mean Corpuscular Hemoglobin 34.5 pg (28.0-33.3); Mean Corpuscular Volume 99.2 fL (83.0-100.0); Mean Platelet Volume 9.3 fL (9.4-12.4); Platelet Count 215 K/mcL (140-400); Red Blood Count 3.62 M/mcL (4.19-5.50); Red Cell Distribution Width 12.6 % (11.5-14.5)
[2021-12-24 03:35] LABS: Hemoglobin 12.5 g/dL (12.9-16.9)
[2021-12-24 03:50] LABS: Calcium 8.5 mg/dL (8.6-10.3); Magnesium 1.4 mg/dL (1.6-2.6); Phosphorous 2.7 mg/dL (2.7-4.5); Potassium 3.7 mEq/L (3.5-5.1)
[2021-12-24] MEDS ORDERED: 0.9 % Sodium Chloride 1,000 ML IVC SCH (07:45)
[2021-12-24] MEDS: Magnesium Sulfate 1 GM/102 ML PIGGYBACK IVPB SCH ×3 (09:07→11:29)
[2021-12-24] MEDS: 0.9 % Sodium Chloride 1,000 ML IVC SCH (12:36)
[2021-12-24] MEDS: Gabapentin 400 MG CAPSULE PO SCH ×2 (14:33→19:29)
[2021-12-24] MEDS: Budesonide/Formoterol 160/4.5 1 PUFF INH IH SCH (22:34)
[2021-12-25] MEDS ORDERED: *HR* Labetalol 20 MG/4 ML SYRINGE IVP ONE (00:23)
[2021-12-25] MEDS: 0.9 % Sodium Chloride 1,000 ML IVC SCH (00:42)
[2021-12-25 02:47] LABS: Basophils % 0.4 %; Eosinophils % 0.3 %; Hematocrit 35.7 % (37.5-50.1); Hemoglobin 12.3 g/dL (12.9-16.9); Immature Granulocytes % 0.3 % (0-4); Lymphocytes # 0.5 K/mcL (0.6-4.6); Lymphocytes % 7.9 %; Mean Corpuscular HGB Conc 34.5 g/dL (31.6-35.5); Mean Corpuscular Hemoglobin 33.3 pg (28.0-33.3); Mean Corpuscular Volume 96.7 fL (83.0-100.0); Mean Platelet Volume 9.2 fL (9.4-12.4); Monocytes # 0.6 K/mcL (0.0-1.3); Neutrophils # 5.7 K/mcL (1.6-8.9); Platelet Count 232 K/mcL (140-400); Red Blood Count 3.69 M/mcL (4.19-5.50); Red Cell Distribution Width 12.3 % (11.5-14.5); Segmented Neutrophils % 83.1 %; White Blood Count 6.9 K/mcL (4.3-11.1)
[2021-12-25 03:18] LABS: BUN/Creatinine Ratio 27 (6-26); Blood Urea Nitrogen 22 mg/dL (8-23); Calcium 8.4 mg/dL (8.6-10.3); Carbon Dioxide 17 mEq/L (23-29); Chloride 105 mEq/L (98-107); Glucose 67 mg/dL (70-105); Magnesium 1.7 mg/dL (1.6-2.6); Osmolality,Calculated 282 (280-300); Phosphorous 2.2 mg/dL (2.7-4.5); Potassium 3.7 mEq/L (3.5-5.1); Sodium 135 mEq/L (136-145)
[2021-12-25] MEDS: Morphine Sulfate 2 MG/ML SYRINGE IVP PRN ×2 (04:41→08:50)
[2021-12-25] MEDS ORDERED: Tiotropium 10 INH DOSE IH ONE (07:13)
[2021-12-25] MEDS: Budesonide/Formoterol 160/4.5 1 PUFF INH IH SCH ×2 (07:35→22:59)
[2021-12-25] MEDS: Tiotropium 10 INH DOSE IH SCH (07:35)
[2021-12-25] MEDS: Aspirin Enteric Coated 81 MG Tablet PO SCH (08:05)
[2021-12-25] MEDS: Spironolactone 12.5 MG TABLET PO SCH (08:05)
[2021-12-25] MEDS: Gabapentin 400 MG CAPSULE PO SCH ×3 (08:05→20:52)
[2021-12-25] MEDS: lisinopriL 20 MG TABLET PO SCH (08:06)
[2021-12-25] MEDS: Metoprolol XL (24 HR) Succ 25 MG TAB.ER.24H PO SCH (08:06)
[2021-12-25] MEDS ORDERED: Ketorolac 30 MG/ML VIAL IVP SCH (12:00)
[2021-12-25] MEDS ORDERED: Ketorolac 30 MG/ML VIAL IVP PRN (12:01)
[2021-12-26 07:40] VITALS: BP 158/86; PULSE 79; TEMP 98.1
[2021-12-26] MEDS: Budesonide/Formoterol 160/4.5 1 PUFF INH IH SCH (07:41)
[2021-12-26] MEDS: Tiotropium 10 INH DOSE IH SCH (07:41)
[2021-12-26 07:46] VITALS: O2SAT 98
[2021-12-26] MEDS: Spironolactone 12.5 MG TABLET PO SCH (10:27)
[2021-12-26] MEDS: lisinopriL 20 MG TABLET PO SCH (10:28)
[2021-12-26] MEDS: Gabapentin 400 MG CAPSULE PO SCH (10:28)
[2021-12-26] MEDS: Metoprolol XL (24 HR) Succ 25 MG TAB.ER.24H PO SCH (10:28)
[2021-12-26] MEDS: Aspirin Enteric Coated 81 MG Tablet PO SCH (10:28)
== END 2021-12-26 11:00 | disposition home or self-care (01) | DRG 247 ==
LOC: 3ANU 14:30 → EMEROOARM 14:30 → SUATTDRO 18:55 → 3ANU 19:53
PROVIDERS: ADMIT Internal Medicine; ATTEND Internal Medicine

== ENCOUNTER 2022-01-08 09:52 | Inpatient (IN) ==
[2022-01-08] MEDS ORDERED: Ondansetron 4 MG/2 ML VIAL IVP ONE (10:21)
[2022-01-08] MEDS ORDERED: Morphine Sulfate 2 MG/ML SYRINGE IVP ONE (10:23)
[2022-01-08] MEDS ORDERED: Iopamidol - 370 500 ML MLS IVP ONE (10:24)
[2022-01-08 11:06] LABS: Basophils % 0.1 %; Hematocrit 43.1 % (37.5-50.1); Hemoglobin 15.2 g/dL (12.9-16.9); Immature Granulocytes % 0.6 % (0-4); Lymphocytes # 0.5 K/mcL (0.6-4.6); Lymphocytes % 3.4 %; Mean Corpuscular HGB Conc 35.3 g/dL (31.6-35.5); Mean Corpuscular Hemoglobin 34.2 pg (28.0-33.3); Mean Corpuscular Volume 96.9 fL (83.0-100.0); Mean Platelet Volume 9.6 fL (9.4-12.4); Monocytes % 6.4 %; Neutrophils # 14.4 K/mcL (1.6-8.9); Platelet Count 332 K/mcL (140-400); Red Blood Count 4.45 M/mcL (4.19-5.50); Red Cell Distribution Width 12.4 % (11.5-14.5); Segmented Neutrophils % 89.5 %; White Blood Count 16.1 K/mcL (4.3-11.1)
[2022-01-08 11:27] LABS: Albumin 4.2 g/dL (3.5-5.7); Albumin/Globulin Ratio 1.3 (1.1-2.2); Bilirubin,Direct 0.2 mg/dL (0.0-0.2); Bilirubin,Indirect 0.8 mg/dL (0.0-1.0); Calcium 10.4 mg/dL (8.6-10.3); Globulin 3.3 g/dL (2.4-3.5); Total Protein 7.5 g/dL (6.4-8.9); Troponin I 0.03 ng/mL (< 0.04)
[2022-01-08] MEDS ORDERED: Naloxone 0.4 MG/ML INJ IVP PRN (11:47)
[2022-01-08] MEDS: Morphine Sulfate 2 MG/ML SYRINGE IVP PRN ×2 (15:51→22:18)
[2022-01-08] MEDS: *HR* Heparin 5,000 UNIT/ML VIAL SQ SCH (15:52)
[2022-01-09] MEDS: Morphine Sulfate 2 MG/ML SYRINGE IVP PRN ×5 (04:50→23:07)
[2022-01-09 06:30] LABS: Basophils % 0.3 %; Eosinophils % 0.4 %; Hematocrit 36.2 % (37.5-50.1); Hemoglobin 12.6 g/dL (12.9-16.9); Immature Granulocytes % 0.4 % (0-4); Lymphocytes # 0.5 K/mcL (0.6-4.6); Lymphocytes % 7.5 %; Mean Corpuscular HGB Conc 34.8 g/dL (31.6-35.5); Mean Corpuscular Hemoglobin 33.9 pg (28.0-33.3); Mean Corpuscular Volume 97.3 fL (83.0-100.0); Mean Platelet Volume 9.7 fL (9.4-12.4); Monocytes # 0.7 K/mcL (0.0-1.3); Monocytes % 10.2 %; Neutrophils # 5.9 K/mcL (1.6-8.9); Platelet Count 243 K/mcL (140-400); Red Blood Count 3.72 M/mcL (4.19-5.50); Red Cell Distribution Width 12.3 % (11.5-14.5); Segmented Neutrophils % 81.2 %; White Blood Count 7.2 K/mcL (4.3-11.1)
[2022-01-09 06:50] LABS: Calcium 9.5 mg/dL (8.6-10.3); Potassium 4.3 mEq/L (3.5-5.1)
[2022-01-09] MEDS: *HR* Heparin 5,000 UNIT/ML VIAL SQ SCH ×4 (10:06→23:08)
[2022-01-09] MEDS: Ringers Solution, Lactated 1,000 ML IVC SCH (10:37)
[2022-01-10] MEDS: Ringers Solution, Lactated 1,000 ML IVC SCH (00:10)
[2022-01-10] MEDS ORDERED: D5% in 0.9% NACL 1,000 ML IVC SCH (00:45)
[2022-01-10] MEDS: Morphine Sulfate 2 MG/ML SYRINGE IVP PRN ×3 (04:02→21:35)
[2022-01-10] MEDS: *HR* Metoprolol 5 MG/5 ML VIAL IVP SCH ×3 (05:22→18:29)
[2022-01-10 05:54] LABS: Basophils % 0.4 %; Eosinophils % 0.6 %; Hematocrit 34.1 % (37.5-50.1); Hemoglobin 11.8 g/dL (12.9-16.9); Immature Granulocytes % 0.6 % (0-4); Lymphocytes # 0.5 K/mcL (0.6-4.6); Lymphocytes % 9.6 %; Mean Corpuscular HGB Conc 34.6 g/dL (31.6-35.5); Mean Corpuscular Hemoglobin 33.2 pg (28.0-33.3); Mean Corpuscular Volume 96.1 fL (83.0-100.0); Mean Platelet Volume 9.6 fL (9.4-12.4); Monocytes # 0.6 K/mcL (0.0-1.3); Monocytes % 10.7 %; Neutrophils # 4.1 K/mcL (1.6-8.9); Platelet Count 234 K/mcL (140-400); Red Blood Count 3.55 M/mcL (4.19-5.50); Red Cell Distribution Width 12.1 % (11.5-14.5); Segmented Neutrophils % 78.1 %; White Blood Count 5.2 K/mcL (4.3-11.1)
[2022-01-10 06:24] LABS: BUN/Creatinine Ratio 28 (6-26); Blood Urea Nitrogen 24 mg/dL (8-23); Calcium 9.2 mg/dL (8.6-10.3); Carbon Dioxide 25 mEq/L (23-29); Chloride 101 mEq/L (98-107); Glucose 99 mg/dL (70-105); Osmolality,Calculated 282 (280-300); Sodium 134 mEq/L (136-145)
[2022-01-10] MEDS ORDERED: Lidocaine HCL 4 ML Topical Solution (Laryng-O-Jet Kit Sterile Pak) TP ONE (07:26)
[2022-01-10] MEDS ORDERED: Ondansetron 4 MG/2 ML VIAL ONE (07:27)
[2022-01-10] MEDS ORDERED: Lidocaine -MPF 2% 5 ML VIAL ONE (07:27)
[2022-01-10] MEDS ORDERED: *HR* Rocuronium Bromide 50 MG/5 ML VIAL ONE (07:27)
[2022-01-10] MEDS: *HR* Heparin 5,000 UNIT/ML VIAL SQ SCH ×2 (07:56→18:06)
[2022-01-10] MEDS ORDERED: *HR* FentaNYL (PF) 100 MCG/2 ML VIAL ONE ×2 (08:44→09:36)
[2022-01-10] MEDS ORDERED: EPHEDrine sulfate 50 MG/10 ML VIAL IVP ONE ×2 (08:45→13:27)
[2022-01-10] MEDS ORDERED: *HR* Vasopressin 20 UNIT/ML VIAL ONE (08:46)
[2022-01-10] MEDS ORDERED: Famotidine 20 MG/2 ML VIAL ONE (08:49)
[2022-01-10] MEDS ORDERED: ceFAZolin 2,000 MG in Water for inj. (sterile) 20 ML IVP ONE (09:14)
[2022-01-10] MEDS ORDERED: Acetaminophen IV 1,000 MG/100 ML BAG IVPB ONE (09:43)
[2022-01-10] MEDS ORDERED: NiCARdipine 2.5 MG/10 ML Syringe IVPB ONE (09:54)
[2022-01-10] MEDS ORDERED: *HR* Magnesium Sulfate 1 GM/2 ML VIAL ONE (10:01)
[2022-01-10] MEDS ORDERED: *HR* Labetalol 20 MG/4 ML SYRINGE IVP PRN ×2 (10:02→12:12)
[2022-01-10] MEDS ORDERED: Ondansetron 4 MG/2 ML VIAL IVP PRN ×2 (10:02→12:12)
[2022-01-10] MEDS ORDERED: Sugammadex Sodium 200 MG/2 ML VIAL IV ONE (10:03)
[2022-01-10] MEDS ORDERED: *HR* HYDROMORPHONE 2 MG/ML VIAL ONE (10:06)
[2022-01-10] MEDS: *HR* HYDROmorphone (PF) 1 MG/ML SYRINGE IVP PRN ×3 (10:27→10:59)
[2022-01-10] MEDS ORDERED: *HR* HYDROmorphone (PF) 1 MG/ML SYRINGE IVP PRN ×2 (12:12)
[2022-01-10] MEDS ORDERED: Naloxone 0.4 MG/ML INJ IVP PRN (12:12)
[2022-01-10] MEDS ORDERED: Tiotropium 10 INH DOSE IH SCH (12:15)
[2022-01-10] MEDS ORDERED: *HR* Propofol 200 MG/20 ML VIAL IVP ONE (13:28)
[2022-01-10] MEDS: Acetaminophen IV 1,000 MG/100 ML BAG IVPB SCH ×2 (14:03→17:25)
[2022-01-10] MEDS: D5% in 0.9% NACL 1,000 ML IVC SCH ×2 (14:04→21:01)
[2022-01-10] MEDS: Tiotropium 10 INH DOSE IH SCH (14:26)
[2022-01-10] MEDS ORDERED: Budesonide/Formoterol 160/4.5 1 PUFF INH IH SCH (21:00)
[2022-01-10] MEDS: Piperacillin/Tazobactam 3.375 GM in 0.9 % Sodium Chloride Mini Bag 100 ML IVPB SCH (21:32)
[2022-01-10] MEDS: Budesonide/Formoterol 160/4.5 1 PUFF INH IH SCH (22:35)
[2022-01-11] MEDS: Acetaminophen IV 1,000 MG/100 ML BAG IVPB SCH ×4 (00:15→17:41)
[2022-01-11] MEDS: *HR* Metoprolol 5 MG/5 ML VIAL IVP SCH ×4 (00:15→17:16)
[2022-01-11] MEDS: *HR* Heparin 5,000 UNIT/ML VIAL SQ SCH ×3 (00:15→15:24)
[2022-01-11 01:43] LABS: Basophils % 0.1 %; Hematocrit 33.4 % (37.5-50.1); Hemoglobin 11.6 g/dL (12.9-16.9); Immature Granulocytes % 0.3 % (0-4); Lymphocytes # 0.2 K/mcL (0.6-4.6); Lymphocytes % 3.1 %; Mean Corpuscular HGB Conc 34.7 g/dL (31.6-35.5); Mean Corpuscular Hemoglobin 33.8 pg (28.0-33.3); Mean Corpuscular Volume 97.4 fL (83.0-100.0); Mean Platelet Volume 9.7 fL (9.4-12.4); Monocytes # 0.5 K/mcL (0.0-1.3); Monocytes % 7.3 %; Neutrophils # 6.4 K/mcL (1.6-8.9); Platelet Count 225 K/mcL (140-400); Red Blood Count 3.43 M/mcL (4.19-5.50); Red Cell Distribution Width 12.2 % (11.5-14.5); Segmented Neutrophils % 89.2 %; White Blood Count 7.2 K/mcL (4.3-11.1)
[2022-01-11 02:00] LABS: BUN/Creatinine Ratio 26 (6-26); Blood Urea Nitrogen 24 mg/dL (8-23); Calcium 8.9 mg/dL (8.6-10.3); Carbon Dioxide 23 mEq/L (23-29); Chloride 103 mEq/L (98-107); Glucose 176 mg/dL (70-105); Osmolality,Calculated 284 (280-300); Potassium 4.6 mEq/L (3.5-5.1); Sodium 133 mEq/L (136-145)
[2022-01-11] MEDS: Morphine Sulfate 2 MG/ML SYRINGE IVP PRN ×2 (05:08→09:22)
[2022-01-11] MEDS: Piperacillin/Tazobactam 3.375 GM in 0.9 % Sodium Chloride Mini Bag 100 ML IVPB SCH ×3 (05:10→20:00)
[2022-01-11 06:06] LABS: Bilirubin,Urine Negative (Negative); Blood,Urine Negative (Negative); Clarity,Urine Ex.Turbid (Clear); Color,Urine Yellow (Yellow); Glucose,Urine (UA) Normal (Normal); Ketones,Urine Trace mg/dL (Negative); Leukocyte Esterase,Urine Negative (Negative); Mucus,Urine Few per lpf (None-Few); Nitrite,Urine Negative (Negative); Protein,Urine Trace mg/dL (Neg-Trace); RBC,Urine 0-3 per hpf (0-3); Specific Gravity,Urine > 1.030 (1.010-1.025); Urobilinogen,Urine Normal (Normal)
[2022-01-11] MEDS: Tiotropium 10 INH DOSE IH SCH (07:42)
[2022-01-11] MEDS: Budesonide/Formoterol 160/4.5 1 PUFF INH IH SCH ×2 (07:42→20:20)
[2022-01-11] MEDS ORDERED: *HR* Labetalol 20 MG/4 ML SYRINGE IVP ONE (21:30)
[2022-01-12] MEDS: Acetaminophen IV 1,000 MG/100 ML BAG IVPB SCH ×3 (00:09→12:12)
[2022-01-12] MEDS: *HR* Metoprolol 5 MG/5 ML VIAL IVP SCH ×3 (00:10→12:09)
[2022-01-12] MEDS: *HR* Heparin 5,000 UNIT/ML VIAL SQ SCH ×3 (00:10→17:17)
[2022-01-12] MEDS: Ketorolac 30 MG/ML VIAL IVP SCH ×4 (00:10→17:16)
[2022-01-12] MEDS: D5% in 0.9% NACL 1,000 ML IVC SCH ×2 (00:15→13:27)
[2022-01-12] MEDS: Piperacillin/Tazobactam 3.375 GM in 0.9 % Sodium Chloride Mini Bag 100 ML IVPB SCH ×3 (06:18→21:00)
[2022-01-12] MEDS: Tiotropium 10 INH DOSE IH SCH (07:48)
[2022-01-12] MEDS: Budesonide/Formoterol 160/4.5 1 PUFF INH IH SCH (07:49)
[2022-01-12] MEDS: Metoprolol XL (24 HR) Succ 25 MG TAB.ER.24H PO SCH (17:29)
[2022-01-12 17:39] LABS: Hematocrit 30.7 % (37.5-50.1); Hemoglobin 10.8 g/dL (12.9-16.9); Mean Corpuscular HGB Conc 35.2 g/dL (31.6-35.5); Mean Corpuscular Hemoglobin 33.6 pg (28.0-33.3); Mean Corpuscular Volume 95.6 fL (83.0-100.0); Mean Platelet Volume 9.7 fL (9.4-12.4); Platelet Count 230 K/mcL (140-400); Red Blood Count 3.21 M/mcL (4.19-5.50); Red Cell Distribution Width 12.4 % (11.5-14.5)
[2022-01-12 17:54] LABS: BUN/Creatinine Ratio 24 (6-26); Blood Urea Nitrogen 22 mg/dL (8-23); Calcium 9.2 mg/dL (8.6-10.3); Carbon Dioxide 25 mEq/L (23-29); Chloride 103 mEq/L (98-107); Glucose 108 mg/dL (70-105); Magnesium 1.6 mg/dL (1.6-2.6); Osmolality,Calculated 286 (280-300); Potassium 3.6 mEq/L (3.5-5.1); Sodium 136 mEq/L (136-145)
[2022-01-12] MEDS: Gabapentin 400 MG CAPSULE PO SCH (21:01)
[2022-01-12] MEDS ORDERED: hydrOXYzine pamoate 25 MG CAPSULE PO PRN (21:21)
[2022-01-12] MEDS ORDERED: *HR* Labetalol 20 MG/4 ML SYRINGE IVP ONE (21:21)
[2022-01-13] MEDS ORDERED: *HR* LORazepam 2 MG/ML VIAL IVP ONE (00:15)
[2022-01-13] MEDS: Budesonide/Formoterol 160/4.5 1 PUFF INH IH SCH ×3 (00:17→22:39)
[2022-01-13] MEDS: Ketorolac 30 MG/ML VIAL IVP SCH ×3 (00:28→13:03)
[2022-01-13] MEDS: *HR* Heparin 5,000 UNIT/ML VIAL SQ SCH ×3 (00:29→17:59)
[2022-01-13] MEDS: *HR* Metoprolol 5 MG/5 ML VIAL IVP SCH (03:14)
[2022-01-13 04:39] LABS: Basophils % 0.1 %; Hematocrit 30.7 % (37.5-50.1); Hemoglobin 10.6 g/dL (12.9-16.9); Immature Granulocytes % 0.5 % (0-4); Lymphocytes # 0.3 K/mcL (0.6-4.6); Lymphocytes % 3.3 %; Mean Corpuscular HGB Conc 34.5 g/dL (31.6-35.5); Mean Corpuscular Hemoglobin 33.1 pg (28.0-33.3); Mean Corpuscular Volume 95.9 fL (83.0-100.0); Mean Platelet Volume 9.9 fL (9.4-12.4); Monocytes # 0.6 K/mcL (0.0-1.3); Monocytes % 6.7 %; Neutrophils # 8.5 K/mcL (1.6-8.9); Platelet Count 232 K/mcL (140-400); Red Cell Distribution Width 12.3 % (11.5-14.5); Segmented Neutrophils % 89.4 %; White Blood Count 9.5 K/mcL (4.3-11.1)
[2022-01-13 04:55] LABS: Alanine Aminotransferase 9 Units/L (7-52); Albumin 2.9 g/dL (3.5-5.7); Alkaline Phosphatase 106 Units/L (34-104); Aspartate Amino Transferase 13 Units/L (13-39); BUN/Creatinine Ratio 24 (6-26); Bilirubin,Total 0.7 mg/dL (0.3-1.0); Blood Urea Nitrogen 20 mg/dL (8-23); Calcium 8.9 mg/dL (8.6-10.3); Carbon Dioxide 23 mEq/L (23-29); Chloride 102 mEq/L (98-107); Globulin 2.8 g/dL (2.4-3.5); Glucose 97 mg/dL (70-105); Osmolality,Calculated 283 (280-300); Potassium 3.4 mEq/L (3.5-5.1); Sodium 135 mEq/L (136-145); Total Protein 5.7 g/dL (6.4-8.9)
[2022-01-13] MEDS ORDERED: *HR* Labetalol 20 MG/4 ML SYRINGE IVP ONE (04:59)
[2022-01-13] MEDS: Piperacillin/Tazobactam 3.375 GM in 0.9 % Sodium Chloride Mini Bag 100 ML IVPB SCH ×3 (06:18→21:01)
[2022-01-13] MEDS: Tiotropium 10 INH DOSE IH SCH (08:08)
[2022-01-13] MEDS: Gabapentin 400 MG CAPSULE PO SCH ×2 (09:32→17:56)
[2022-01-13] MEDS: Spironolactone 12.5 MG TABLET PO SCH (09:32)
[2022-01-13] MEDS: Metoprolol XL (24 HR) Succ 25 MG TAB.ER.24H PO SCH (09:32)
[2022-01-13] MEDS: lisinopriL 20 MG TABLET PO SCH (09:32)
[2022-01-13] MEDS: Aspirin Enteric Coated 81 MG Tablet PO SCH (09:32)
[2022-01-13] MEDS: Furosemide 40 MG TABLET PO SCH (09:32)
[2022-01-13] MEDS ORDERED: Potassium Chloride Elixir 20 MEQ/15 ML UDC PO ONE (11:28)
[2022-01-13] MEDS: *HR* OxyCODONE/APAP 5/325 TABLET PO PRN (21:02)
[2022-01-14] MEDS: *HR* Heparin 5,000 UNIT/ML VIAL SQ SCH ×2 (04:17→08:21)
[2022-01-14] MEDS: Gabapentin 400 MG CAPSULE PO SCH ×2 (04:23→08:22)
[2022-01-14] MEDS: *HR* OxyCODONE/APAP 5/325 TABLET PO PRN (04:23)
[2022-01-14] MEDS: Piperacillin/Tazobactam 3.375 GM in 0.9 % Sodium Chloride Mini Bag 100 ML IVPB SCH (06:20)
[2022-01-14] MEDS: Budesonide/Formoterol 160/4.5 1 PUFF INH IH SCH (08:14)
[2022-01-14] MEDS: Tiotropium 10 INH DOSE IH SCH (08:14)
[2022-01-14 08:16] VITALS: O2SAT 96
[2022-01-14] MEDS: Aspirin Enteric Coated 81 MG Tablet PO SCH (08:22)
[2022-01-14] MEDS: lisinopriL 20 MG TABLET PO SCH (08:22)
[2022-01-14] MEDS: Metoprolol XL (24 HR) Succ 25 MG TAB.ER.24H PO SCH (08:22)
[2022-01-14] MEDS: Furosemide 40 MG TABLET PO SCH (08:22)
[2022-01-14] MEDS: Spironolactone 12.5 MG TABLET PO SCH (08:22)
[2022-01-14 10:43] VITALS: BP 122/70; PULSE 82; TEMP 98.3
== END 2022-01-14 12:44 | disposition home or self-care (01) | DRG 230 ==
LOC: EMEROOARM 09:52 → 3BNU 13:29 → SUATTDRO 13:29 → 3ANU 13:54
PROVIDERS: ADMIT Internal Medicine; ATTEND Internal Medicine